=== PATIENT | female | born 1945 | race Caucasian/White ===

== ENCOUNTER → 2016-10-19 | Outpatient (CLI) | payer OTHER, MEDICARE ==
[~2016-10-19] MED LIST: ASCA500 PO; ASPI1CHW12 PO; CHOL1TAB46 PO; GLC500 PO; MULT-506 PO; OMEG10007 PO
[2016-10-19 12:07] LABS: BASO % 0.3 %; BASO ABS # 0.03 K/uL (0-0.2); COMPLETE YES; EOS % 1.4 %; HEMATOCRIT 42.2 % (37-47); IG% 0.3 %; LYMPH % 18.6 %; LYMPH ABS # 1.61 K/uL (1.2-3.4); MEAN CELL VOLUME 100.5 fL (80-100); MEAN CORPUSCULAR HEMOGLOBIN 32.4 pg (25-34); MEAN CORPUSCULAR HGB CONC 32.2 g/dl (32-36); MEAN PLATELET VOLUME 10.3 fL (7.4-10.4); MONO % 6.5 %; NEUT % 72.9 %; PLATELET COUNT 231 K/uL (130-400); WHITE BLOOD COUNT 8.64 K/uL (4.8-10.8)
[2016-10-19 12:36] LABS: ESTIMATED AVERAGE GLUCOSE 154 mg/dl; HA1C FLAG Normal (Normal)
== END | disposition home or self-care (01) ==
LOC: C.LABBFT 07:32
PROVIDERS: ATTEND Internal Medicine
DX: E11.9 Type 2 diabetes mellitus without complications (principal); E55.9 Vitamin D deficiency, unspecified; E78.00 Pure hypercholesterolemia, unspecified

== ENCOUNTER → 2016-10-26 | Outpatient (CLI) | payer OTHER, MEDICARE ==
--- NOTE | 2016-10-27 06:48 | SPLIT NIGHT TECHNICIAN REPORT ---
[facility] Split Night Polysomnogram - Cable Assembler And Swager Report Study date: 10/26/2016 Referring Physician: Gaudencio Mendez M.D. Name: IDANIA DUNCAN Cable Assembler And Swager: YUSEF Huitron. Date of : 1945 Height: 71 years, Height 5' 1" Sex: Female Weight: 248 lbs Age: 71 Neck Circum: 18 inches BMI: Medications: 46.85 Aspirin 81 mg, Azithromycin 250 mg, CoQ10, Fish Oil 1000 MG, Multi Vitamin, Patient History 71 yr. old female here for a modified split night sleep study if AHI is greater than 15 in room 6. Patient had a sleep study in 2008 and had mild ROLANDA. Patient snores and has EDS. Patients [place] sleepiness scale score is 11/24. Parameters Monitored NPSG: E1-M2, E2-M1, Fp1-M2, Fp2-M1, F3-M2, F4-M2, F4-M1, C3-M2, C4-M2, C4-M1, O1-M2, O2-M2, O2-M1, T3-M2, T4-M1, P3-M2, P4-M1, CHIN1, CHIN2, HR, EKG, Legs, PFLOW, SNOR, FLOW, CFLOW, Tidal Volume, THOR, ABDO, SpO2, PLTH, CPRESS, ETCO2 Wave, ETCO2, pH SLEEP SUMMARY DATA DIAGNOSTIC TREATMENT Lights Out: 9:28:59 PM 1:02:29 AM Lights On: 12:48:29 AM 6:04:59 AM Total Recording Time (TRT): 200.5 min. 302.5 min. Total Sleep Time (TST): 120.5 min. 234.5 min. NREM Time: 120.5 min. 147.0 min. REM Time: 0.0 min. 87.5 min. Sleep Period Time (SPT): 151.0 min. 260.0 min. Sleep Efficiency (SE): 60 % 78 % Sleep Latency: 48.5 min. 23.0 min. Arousal Index: 9.5 1.5 PAP Treatment Levels: 4, 6, 8, 9, 10, 11, 12, 13, 14 * Optimal Pressure(s) SLEEP STAGING DATA DIAGNOSTIC TREATMENT Duration (min) TST % Duration (min) TST % Stage Wake: 79.0 min. -- 68.0 min. -- WASO: 30.5 min. -- 25.5 min. -- NREM: 120.5 min. 100 % 147.0 min. 63 % Stage N1: 21.0 min. 17 % 8.0 min. 3 % Stage N2: 99.5 min. 83 % 44.5 min. 19 % Stage N3: 0.0 min. 0 % 94.5 min. 40 % REM: 0.0 min. 0 % 87.5 min. 37 % POSITIONAL DATA Event Count Index Event Count Index Supine: N/A N/A N/A N/A Supine NREM: N/A N/A N/A N/A Supine REM: N/A N/A N/A N/A Non-Supine: 138 68.7 74 18.9 Non-Supine NREM: 138 68.7 30 12.2 Non-Supine REM: N/A N/A 44 30.2 AROUSAL SUMMARY DATA: Event Count Index Event Count Index Apnea Arousals: 0 0.0 0 0.0 Hypopnea Arousals: 8 4.0 2 0.5 Snore Arousals: 8 4.0 1 0.3 PLM Arousals: 0 0.0 0 0.0 Non-Specific Arousals: 0 0.0 2 0.5 Total Arousals: 19 9.5 6 1.5 MYOCLONUS (PLM) Event Count Index Event Count Index PLM: 8 4.0 60 15.4 PLM AROUSAL: 0 0.0 0 0.0 PLM W/O AROUSAL 8 4.0 60 15.4 PLM W/RESP EVENT 1 0.0 2 0.0 MYOCLONUS (PLM) Event Count Index Event Count Index LM: 6 22.4 11 2.8 LM AROUSAL: 6 3.0 1 0.3 LM W/O AROUSAL LM W/RESP EVENT LM NON SPECIFIC 23 11.5 67 17.1 HEART RATE DATA DIAGNOSTIC TREATMENT Sleep (bpm): 95 93 REM (bpm): N/A 81 NREM (bpm): 88 89 Tachycardia Count: 0 0 Tachycardia Duration: 0.00 0 Bradycardia Count: 0 0 Bradycardia Duration: 0.00 0 DIAGNOSTIC PORTION TREATMENT PORTION RESPIRATORY DATA Event Count Index Event Count Index AHI: -- 68.7 -- 18.9 RDI: -- 68.7 -- 19 Obstructive Apnea: 0 0.0 0 0.0 Central Apnea: 0 0.0 0 0.0 Mixed Apnea: 0 0.0 0 0.0 Hypopnea: 138 68.7 74 18.9 RERA: 0 0.0 0 0.0 Total Apneas: 0 0.0 0 0.0 RESPIRATORY DATA REM NREM SLEEP REM NREM SLEEP Supine Position: Obstructive Apneas: N/A N/A N/A N/A N/A N/A Central Apneas: N/A N/A N/A N/A N/A N/A Mixed Apneas: N/A N/A N/A N/A N/A N/A Hypopneas: N/A N/A N/A N/A N/A N/A RERA N/A N/A N/A N/A N/A N/A Total Supine Events: N/A N/A N/A N/A N/A N/A Supine AHI: N/A N/A N/A N/A N/A N/A Supine RDI: N/A N/A N/A N/A N/A N/A REM NREM SLEEP REM NREM SLEEP Non-Supine Position: Obstructive Apneas: N/A 0 0 0 0 0 Central Apneas: N/A 0 0 0 0 0 Mixed Apneas: N/A 0 0 0 0 0 Hypopneas: N/A 138 138 44 30 74 RERA N/A 0 0 0 0 0 Total Supine Events: N/A 138 138 44 30 74 Supine AHI: N/A 68.7 68.7 30.2 12.2 18.9 Supine RDI: N/A 68.7 68.7 30.2 12.2 18.9 OXYGEN DESTAURATION DATA: Event Count Index Event Count Index REM Desaturations: N/A N/A 58 39.8 NREM Desaturations: 169 84.1 34 13.9 SNORE DATA DIAGNOSTIC TREATMENT Snore Time: 10.0 1:25:29 AM Snore TST%: 3 2 Snore Arousal Count: 8 1 Snore Arousal Index: 4.0 0.3 Desaturation Event Summary: Minimum %SpO2 Event Count Mean/Min/Max Duration(sec.) Desaturation Index % Time In Bed > 90 144 21.1 / 9.3 / 54.8 95.9 18.1 86 - 90 226 20.5 / 6.5 / 54.8 43.7 62.3 81 - 85 38 27.1 / 9.0 / 60.0 37.9 12.1 76 - 80 14 25.5 / 9.0 / 60.0 35.6 4.7 71 - 75 6 25.1 / 17.8 / 36.0 28.4 2.5 66 - 70 0 N/A 0.0 0.3 61 - 65 0 N/A 0.0 0.0 56 - 60 0 N/A 0.0 0.0 51 - 55 0 N/A 0.0 0.0 < 50 0 N/A 0.0 0.0 OXYGEN SATURATION DATA DIAGNOSTIC TREATMENT SpO2 Mean Sleep: 88 % 86 % SpO2 Mean REM: N/A % 81 % SpO2 Mean NREM: 88 % 89 % SpO2 Minimum Sleep: 83 % 69 % SpO2 Minimum REM: N/A % 69 % SpO2 Minimum NREM: 83 % 84 % Time Below 90% (TST): 93.5 176.0 Time Below 88% (TST): 59.3 95.5 Total REM NREM Awake <50% 0.0 min. 0.0 min. 0.0 min. 0.0 min. 51 - 60% 0.0 min. 0.0 min. 0.0 min. 0.0 min. 61 - 70% 1.5 min. 1.5 min. 0.0 min. 0.0 min. 71 - 80% 36.3 min. 36.3 min. 0.0 min. 0.0 min. 81 - 90% 370.4 min. 49.1 min. 234.1 min. 87.2 min. 91 - 100% 90.1 min. 0.4 min. 32.9 min. 56.7 min. Average 88 81 88 90 Minimum SpO2 69 69 83 82 Desaturation Event Index 36.0 39.8 45.5 16.7 # Desat. Events below 89% 280 58 200 22 Time(%) with Saturation below 89% 45.1 16.5 24.4 4.2 Time(min.) with Saturation below 89% 224.7 82.0 121.6 21.2 Recording Cable Assembler And Swager Comments: Mrs. Duncan slept in the right, left, and supine positions. Frequent cardiac arrhythmias and PLMs noted. No bruxism noted. Snoring was noted and scored as a 3 on a scale of 0 through 5. (0=no snoring, 5=snoring loud enough to be heard through a closed door or down the [place] way) At 1:00 am, Mrs. Duncan met specific Split-Night criteria during the diagnostic portion of this study. CPAP was initiated at +4 CMH2O room air and up-titrated to an optimal level of +14 CMH2O Cflex, which nearly eliminated all respiratory events and snoring. A small ResMed Quattro air, was used during titration. Mrs. Duncan awoke to use the restroom once during the night. Mrs. Duncan stated, "I was so uncomfortable". The final report will be interpreted and signed by a sleep physician. The completed physician report will then be placed in the patient medical record. Therapy Event: Therapy (cm H20) 0 4 6 8 9 10 11 12 13 14 Total Time at Pressure (min.) 199.5 33.4 9.7 10.2 67.2 43.0 13.3 39.3 62.8 23.5 TST at Pressure (min.) 120.5 10.4 9.7 10.2 49.2 42.0 13.3 32.8 62.8 4.0 # Periods 1 1 1 1 1 1 1 1 1 1 Sleep Onset (min.) 48.5 23.0 0.0 0.0 0.0 0.0 0.0 0.0 0.0 0.0 REM Onset (min.) N/A N/A 2.6 0.0 0.0 43.0 0.0 0.0 44.3 0.0 Sleep Efficiency % 60 31 100 100 73 97 100 83 100 17 Wakefulness (%) 39.6 68.9 0.0 0.0 26.8 2.3 0.0 16.5 0.0 82.9 Wakefulness (min.) 79.0 23.0 0.0 0.0 18.0 1.0 0.0 6.5 0.0 19.5 NREM 1 (%) 10.5 7.5 0.0 0.0 2.2 2.3 0.0 7.6 0.0 0.0 NREM 1 (min.) 21.0 2.5 0.0 0.0 1.5 1.0 0.0 3.0 0.0 0.0 NREM 2 (%) 49.9 23.6 27.0 0.0 29.0 10.5 0.0 1.7 14.9 0.0 NREM 2 (min.) 99.5 7.9 2.6 0.0 19.5 4.5 0.0 0.7 9.3 0.0 NREM 3 (%) 0.0 0.0 0.0 0.0 34.2 84.9 0.0 0.0 55.7 0.0 NREM 3 (min.) 0.0 0.0 0.0 0.0 23.0 36.5 0.0 0.0 35.0 0.0 REM (%) 0.0 0.0 73.0 100.0 7.8 0.0 100.0 74.1 29.4 17.1 REM (min.) 0.0 0.0 7.1 10.2 5.2 0.0 13.3 29.2 18.5 4.0 # Arousals 19 0 1 0 2 1 0 1 1 0 Arousal Index 9.5 0.0 6.2 0.0 2.4 1.4 0.0 1.8 1.0 0.0 # Snore 517 34 83 31 75 1 0 0 8 0 Snore Index 257.4 196.6 513.5 182.2 91.4 1.4 0.0 0.0 7.6 0.0 AHI 68.7 92.5 61.9 35.3 6.1 5.7 27.0 25.6 12.4 0.0 AHI Supine N/A N/A N/A N/A N/A N/A N/A N/A N/A N/A AHI Non-Supine 68.7 92.5 61.9 35.3 6.1 5.7 27.0 25.6 12.4 0.0 NREM AHI 68.7 92.5 68.7 N/A 4.1 5.7 N/A 0.0 5.4 N/A REM AHI N/A N/A 59.4 35.3 23.0 0.0 27.0 28.8 29.2 0.0 RDI 68.7 92.5 61.9 35.3 6.1 5.7 27.0 25.6 12.4 0.0 # Obstructive 0 0 0 0 0 0 0 0 0 0 # Central Ap 0 0 0 0 0 0 0 0 0 0 # Mixed 0 0 0 0 0 0 0 0 0 0 # Hypopneas 138 16 10 6 5 4 6 14 13 0 RERAS 0 0 0 0 0 0 0 0 0 0 Total Respiratory Events 138 16 10 6 5 4 6 14 13 0 Time Below SpO2 89.00% (min.) 77.1 4.8 9.0 10.2 25.7 14.5 13.2 29.3 15.8 4.0 Mean NREM SpO2 (%) 88 89 88 N/A 88 89 N/A 90 90 N/A Mean REM SpO2 (%) N/A N/A 77 75 78 86 78 83 84 82 Mean Sleep SpO2 (%) 88 89 80 75 87 89 78 84 88 82 Min NREM SpO2 (%) 83 85 84 N/A 85 85 N/A 88 86 N/A Min REM SpO2 (%) N/A N/A 69 69 73 86 72 77 76 80 Position Supine (min.) 0.0 0.0 0.0 0.0 0.0 0.0 0.0 0.0 0.0 0.0 Position Non-supine (min.) 120.5 10.4 9.7 10.2 49.2 42.0 13.3 32.8 62.8 4.0 LM Index Sleep 26.4 5.8 12.4 0.0 74.3 1.4 4.5 3.7 2.9 0.0 LM Index NREM 26.4 5.8 0.0 N/A 77.7 1.4 N/A 32.7 4.1 N/A LM Index REM N/A N/A 17.0 0.0 46.0 0.0 4.5 0.0 0.0 0.0 Mean Heart Rate (bpm) 95 96 98 99 97 90 92 91 91 92 Min Heart Rate (bpm) 51 91 82 87 49 66 59 47 50 87
--- NOTE | 2016-10-27 17:09 | POLYSOMNOGRAPH REPORT ---
CLINICAL DATA: A 71-year-old female with BMI of 46.85 referred by myself and Dr. Maddox with a previous history of mild sleep apnea in 2009. She has snoring and excessive daytime sleepiness. Her [place] Sleepiness Score was elevated at 11/24. SLEEP ARCHITECTURE: For the diagnostic portion of the study, total sleep period was 151 minutes. Total sleep time was 120.5 minutes, all non-REM sleep. Sleep latency was delayed at 48.5 minutes. Sleep efficiency was 60%. Arousal index was 9.5. Sleep consisted of stage N1 17% and N2 83%. For the treatment portion of the study, total sleep period was 260 minutes. Total sleep time was 234.5 minutes divided between 147 minutes of non-REM sleep and 87.5 minutes of REM sleep. Sleep latency was 23 minutes. Sleep efficiency was 78%. Arousal index was 12.5. Sleep consisted of stage N1 3%, N2 19% N3 40%, REM 37%. AROUSAL DATA: Prior to treatment, 19 arousals were recorded for an index of 9.5 per hour. During treatment, 6 arousals were recorded for an index of 1.5 per hour. PERIODIC LIMB MOVEMENTS DATA: Prior to treatment, 23 limb movements during sleep were noted for an index of 11.5 per hour. During treatment, 67 limb movements during sleep were noted for an index of 17.1 per hour. EKG: Heart rate ranged from 81 and 95 beats per minute. There were PVCs and aberrantly conducted PACs noted. RESPIRATORY DATA: Very severe sleep apnea was documented prior to treatment. The AHI was 68.7. There were 138 hypopneic episodes. The AHI during treatment was 18.9. There were 74 hypopneic episodes. OXIMETRY DATA: Nocturnal hypoxemia was seen prior to treatment. Oxygen bertin was 69% during REM. The mean saturation for the treatment was 86%. SCIENTIFIC SOFTWARE DEVELOPER'S COMMENTS AND TREATMENT SUMMARY: The patient slept in the right, left, and supine positions. Snoring was moderate, rated 3 on a scale of 1-5. At 1 a.m., she met split night criteria. She used a small ResMed Quattro facemask. She was started on CPAP and was titrated up to 14 cm of water pressure. At a final pressure setting, she slept for 4 minutes with an AHI of 0 with improvement in her nocturnal hypoxemia. IMPRESSION: Severe sleep apnea/hypopnea with an apnea-hypopnea index of 68.7 with nocturnal hypoxemia corrected with CPAP 14 cm of water pressure, small ResMed Quattro Air facemask. RECOMMENDATIONS: The patient should be started on the above noted treatment regimen and seen back in followup within 90 days to document efficacy and compliance. DONYAD
== END | disposition home or self-care (01) ==
LOC: C.NEUR 21:00
PROVIDERS: ATTEND Internal Medicine Pulmonary Disease
DX: G47.30 Sleep apnea, unspecified (principal)

== ENCOUNTER → 2016-11-04 | Outpatient (CLI) | payer OTHER, MEDICARE ==
[~2016-11-04] VITALS: Ht 152.4 cm; Wt 110.9 kg
[2016-11-04 15:17] VITALS: BP 133/68; PULSE 105; Ht 152.4 cm; Wt 110.9 kg
== END | disposition home or self-care (01) ==
LOC: C.NEUR 14:38
PROVIDERS: ATTEND Internal Medicine Pulmonary Disease
DX: G47.30 Sleep apnea, unspecified (principal); R53.83 Other fatigue

== ENCOUNTER → 2016-12-21 | Day surgery (SDC) | payer OTHER, MEDICARE ==
[2016-12-14 07:34] VITALS: Ht 154.9 cm; Wt 110.9 kg
[~2016-12-21] VITALS: Ht 154.9 cm; Wt 110.9 kg
[~2016-12-21] MED LIST changes: +LIDOCAINE HCL 2% 2 ML VIAL (20MG/ML) ONE; +PROPOFOL IV EMULSION 10 MG/ML 20 ML VIAL IV ONE; +SODIUM CHLORIDE 0.9% 500ML 500 ML IV ONE
--- NOTE | 2016-12-21 10:10 | Endo History and Physical ---
History & Physical Date of Service: Dec 21, 2016. Chief Complaint: Screening Referring Physician: Dr. Maddox History of Present Illness 71 yo CF who presents for screening colonoscopy. Past Surgical History Hx Cardiac Surgery: No Hx Internal Defibrillator: No Hx Pacemaker: No Hx Abdominal Surgery: Yes (LAP DARRION) Hx of Implantable Prosthesis: No Hx Post-Op Nausea and Vomiting: No Hx Cancer Surgery: Yes (MASTECTOMY AND RECONSTRUCTION SURGERY) Hx Thoracic Surgery: No Hx Orthopedic: No Hx Urinary Tract Surgery: No Family History None Social History Smoking Status: Never Smoker Hx Substance Use: No Hx Alcohol Use: No Allergies Coded Allergies: Statins (Verified Adverse Reaction, Mild, MUSCLE PAIN, 12/21/16) Current Medications Reported Home Medications Medications Dose Route/Sig Max Daily Dose Days Date Category Metformin HCl 500 Mg Tab 500 Mg PO BID 12/14/16 Reported Aspirin 81 Low Dose (Aspirin) 81 Mg Chw 1 Tab PO QAM 12/14/16 Reported Vitamin D3 (Cholecalciferol) 5,000 Unit Tab 2 Tab PO QAM 12/14/16 Reported Vitamin C (Ascorbic Acid) 500 Mg Tab 1,000 Mg PO QAM 12/14/16 Reported [place]-3 (Fish Oil) 1 Ea Cap 1 Cap PO QAM 12/14/16 Reported Multivitamin (Multivitamins) Tab 1 Tab PO QAM 04/04/11 Reported Vital Signs Weight (Kilograms): 110.91 Height (Feet): 5 Height (Inches): 1 Physical Exam General Appearance: WD/WN, no apparent distress Respiratory/Chest: Auscultation: breath sounds normal Cardiovascular: Heart Auscultation: RRR Abdomen: Bowel Sounds: normal Inspection & Palpation: soft, non-distended, no tenderness, guarding & rebound Assessment and Plan Assessment: 71 yo CF who presents for screening colonoscopy. Plan: Proceed with colonoscopy.
--- NOTE | 2016-12-21 11:08 | GI REPORT ---
Procedure Date: 12/21/2016 10:13 AM Procedure: Colonoscopy Indications: Screening for colorectal malignant neoplasm Medicines: Monitored Anesthesia Care Complications: No immediate complications. Estimated Blood Loss: Estimated blood loss: none. Procedure: Pre-Anesthesia Assessment: - Prior to the procedure, a History and Physical was performed, and patient medications and allergies were reviewed. The patient's tolerance of previous anesthesia was also reviewed. The risks and benefits of the procedure and the sedation options and risks were discussed with the patient. All questions were answered, and informed consent was obtained. Prior Anticoagulants: The patient has taken aspirin, last dose was 2 days prior to procedure. ASA Grade Assessment: III - A patient with severe systemic disease. After reviewing the risks and benefits, the patient was deemed in satisfactory condition to undergo the procedure. After I obtained informed consent, the scope was passed under direct vision. Throughout the procedure, the patient's blood pressure, pulse, and oxygen saturations were monitored continuously. The scope was introduced through the anus and advanced to the terminal ileum. The colonoscopy was performed without difficulty. The patient tolerated the procedure well. The quality of the bowel preparation was good. The terminal ileum, ileocecal valve, appendiceal orifice, and rectum were photographed. Findings: A 4 mm polyp was found in the ascending colon. The polyp was sessile. The polyp was removed with a cold snare. Resection was complete, and retrieval was complete. Multiple small-mouthed diverticula were found in the sigmoid colon. Non-bleeding internal hemorrhoids were found during retroflexion. The hemorrhoids were small. Impression: - One 4 mm polyp in the ascending colon, removed with a cold snare. Resected and retrieved. - Non-bleeding internal hemorrhoids. Recommendation: - Resume previous diet. - Continue present medications. - Repeat colonoscopy for surveillance based on pathology results. - Return to primary care physician as previously scheduled. Chau Causey DO 12/21/2016 11:08:33 AM This report has been signed electronically. Note Initiated On: 12/21/2016 10:13 AM I attest to the content of the Intraoperative Record and orders documented therein, exceptions below
--- NOTE | 2016-12-21 11:09 | Discharge Instructions ---
Endoscopy Patient Instructions Date / Procedure(s) Performed Dec 21, 2016. Colonoscopy Allergy Information Coded Allergies: Statins (Verified Adverse Reaction, Mild, MUSCLE PAIN, 12/21/16) Discharge Date / Findings Dec 21, 2016. Colon polyp Diverticulosis Internal hemorrhoids Medication Instructions Stopped Medication(s): 81mg Aspirin last taken 12/19/16 OK to resume all medications today as prescribed Reported Home Medications Medications Dose Route/Sig Max Daily Dose Days Date Category Metformin HCl 500 Mg Tab 500 Mg PO BID 12/14/16 Reported Aspirin 81 Low Dose (Aspirin) 81 Mg Chw 1 Tab PO QAM 12/14/16 Reported Vitamin D3 (Cholecalciferol) 5,000 Unit Tab 2 Tab PO QAM 12/14/16 Reported Vitamin C (Ascorbic Acid) 500 Mg Tab 1,000 Mg PO QAM 12/14/16 Reported [place]-3 (Fish Oil) 1 Ea Cap 1 Cap PO QAM 12/14/16 Reported Multivitamin (Multivitamins) Tab 1 Tab PO QAM 04/04/11 Reported Provider Instructions Activity Restrictions - No exercising or heavy lifting for 24 hours. - Do not drink alcohol the day of the procedure. - Do not drive a car or operate machinery until the day after the procedure. - Do not make any important decisions or sign important papers in 24 hours after the procedure. Following Day: - Return to full activity which may include returning to work/school. Diet Start your diet with liquids and light foods (jello, soup, juice, toast). Then eat your usual diet if not nauseated. Treatment For Common After Affects For mild abdominal pain, bloating, or excessive gas: - Rest - Eat lightly - Lie on right side Follow-Up Information Follow-up with Case as scheduled Anesthesia Information What You Should Know You have had a procedure that required some medicine to reduce anxiety and discomfort. This treatment is called moderate sedation. After receiving the treatment, you may be sleepy, but you will be able to breathe on your own. The effects of the treatment may last for several hours. Follow these instructions along with Activity/Diet recommendations noted above: * Do NOT do anything where dizziness or clumsiness would be dangerous. * Rest quietly at home today, then you can be up and about tomorrow. * Have a responsible person stay with you the rest of today. * You may have had an I.V. today. If so, you may take the dressing off later today. Recommendations Call your doctor if: * Trouble breathing * Continuous vomiting for more than 24 hours * Temperature above 101 degrees * Severe abdominal pain or bloating * Pain not relieved by pain medicine ordered * There is increased drainage or redness from any incision * A large amount of rectal bleeding greater than 2-3 tablespoons. (If you had a polyp/s removed or have hemorrhoids, a small amount of blood - from the rectum is to be expected.) * You have any unanswered questions or concerns. IN THE EVENT OF A SERIOUS EMERGENCY, GO TO THE NEAREST EMERGENCY ROOM Your discharge instructions were prepared by provider Chau Causey. Patient Instructions Signature Page Renee Duncan Patient (or Guardian) Signature/Date: I have read and understand the instructions given to me by my caregivers. Caregiver/RN/Doctor Signature/Date: The above-named patient and/or guardian has received patient instructions on this date. + Original Patient Signature Page (only) stays with chart. Please make copy for patient.
[2016-12-21 11:32] VITALS: BP 145/77; PULSE 91; O2SAT 96
--- NOTE | 2016-12-21 11:37 | Anesthesiology Progress Note ---
Anesthesia Post Op Note Date & Time Dec 21, 2016 at 11:37 Vital Signs Pain Intensity: 0 Vital Signs Past 12 Hours Date Time Temp Pulse Resp B/P (MAP) Pulse Ox O2 Delivery O2 Flow Rate FiO2 12/21/16 11:32 91 18 145/77 (99) 96 Room Air 12/21/16 11:17 96 18 142/82 (102) 98 Room Air 12/21/16 11:02 97 18 122/65 (84) 95 Room Air 12/21/16 10:11 37.2 91 18 144/74 (97) 94 Room Air Notes Mental Status: alert / awake / arousable, participated in evaluation Pt Amnestic to Procedure: Yes Nausea / Vomiting: adequately controlled Pain: adequately controlled Airway Patency, RR, SpO2: stable & adequate BP & HR: stable & adequate Hydration State: stable & adequate Anesthetic Complications: no major complications apparent
== END | disposition home or self-care (01) ==
LOC: C.GI 09:29
PROVIDERS: ATTEND Internal Medicine
DX: Z12.11 Encounter for screening for malignant neoplasm of colon (principal); D12.2 Benign neoplasm of ascending colon; K64.8 Other hemorrhoids; Z90.49 Acquired absence of other specified parts of digestive tract; G47.33 Obstructive sleep apnea (adult) (pediatric); E11.9 Type 2 diabetes mellitus without complications; Z85.3 Personal history of malignant neoplasm of breast

== ENCOUNTER → 2017-01-13 | Outpatient (CLI) | payer OTHER, MEDICARE ==
[~2017-01-13] VITALS: Ht 154.9 cm; Wt 110.7 kg
[~2017-01-13] MED LIST changes: -LIDOCAINE HCL 2% 2 ML VIAL (20MG/ML) ONE; -PROPOFOL IV EMULSION 10 MG/ML 20 ML VIAL IV ONE; -SODIUM CHLORIDE 0.9% 500ML 500 ML IV ONE
[2017-01-13 13:35] VITALS: BP 142/80; PULSE 90; Ht 154.9 cm; Wt 110.7 kg
== END | disposition home or self-care (01) ==
LOC: C.NEUR 13:07
PROVIDERS: ATTEND Physician Assistant
DX: G47.30 Sleep apnea, unspecified (principal)

== ENCOUNTER → 2017-02-23 | Outpatient (CLI) | payer OTHER, MEDICARE ==
[2017-02-23 12:33] LABS: URINE APPEARANCE CLOUDY (CLEAR); URINE BILIRUBIN NEG (NEG); URINE COLOR YELLOW; URINE EPITHELIAL CELL AUTO >30 /lpf (0-5); URINE NITRITE NEG (NEG); URINE PH 5.5 (4.5-7.5); URINE SPECIFIC GRAVITY 1.017 (1.000-1.030); UROBILINOGEN NEG (NEG); ZZUR CULT IF INDIC CLEAN CATCH YES
[2017-02-23 12:38] LABS: MANUAL MICROSCOPIC REQUIRED? NO; REVIEW REQ? NO
[2017-02-23 13:00] LABS: ESTIMATED AVERAGE GLUCOSE 143 mg/dl; HA1C FLAG Normal (Normal)
[2017-02-23 13:25] LABS: BLOOD UREA NITROGEN 10 mg/dl (7-18); BUN/CREATININE RATIO 16.4 (10-20); CALCIUM 9.3 mg/dl (8.5-10.1); CARBON DIOXIDE 28 mmol/L (21-32); CHLORIDE 106 mmol/L (98-107); CREATININE 0.59 mg/dl (0.60-1.20); GLUCOSE 118 mg/dl (70-99); POTASSIUM 4.2 mmol/L (3.5-5.1); SODIUM 140 mmol/L (136-145)
[2017-02-23 13:27] LABS: RATIO 23.2 mcg/mg (0-30.0)
== END | disposition home or self-care (01) ==
LOC: C.LABBFT 07:46
PROVIDERS: ATTEND Internal Medicine
DX: E11.9 Type 2 diabetes mellitus without complications (principal); E55.9 Vitamin D deficiency, unspecified

== ENCOUNTER → 2017-02-27 | Outpatient (CLI) | payer OTHER, MEDICARE | END | disposition home or self-care (01) | LOC: C.LABBFT 07:56 | PROVIDERS: ATTEND Internal Medicine | DX: E55.9 Vitamin D deficiency, unspecified (principal) ==

== ENCOUNTER → 2017-07-03 | Outpatient (CLI) | payer OTHER, MEDICARE ==
[2017-07-03 12:58] LABS: HEMOGLOBIN A1C 6.4 % (4.5-5.6)
== END | disposition home or self-care (01) ==
LOC: C.LABBFT 07:42
PROVIDERS: ATTEND Internal Medicine
DX: E11.9 Type 2 diabetes mellitus without complications (principal); E55.9 Vitamin D deficiency, unspecified

== ENCOUNTER → 2017-08-24 | Outpatient (CLI) | payer OTHER, MEDICARE | END | disposition home or self-care (01) | LOC: C.MAMM 13:18 | PROVIDERS: ATTEND Internal Medicine | DX: M81.0 Age-related osteoporosis without current pathological fracture (principal) ==

== ENCOUNTER 2023-05-10 20:41 | Inpatient (IN) ==
[2023-05-10] MEDS ORDERED: ALBUT/IPRATROP 3MG/0.5MG NEB 3 ML VIAL NEB STA ×3 (21:06→22:52)
[2023-05-10] MEDS ORDERED: methylPREDNISolone 125 MG/2 ML VIAL IV STA (21:06)
[2023-05-10] MEDS ORDERED: OPTIRAY 320 125ml IV ONE (21:35)
[2023-05-10 21:37] LABS: iSTAT Creatinine 0.3 mg/dl (0.6-1.3); iSTAT Hemoglobin 13.3 g/dl (12.0-16.0); iSTAT Ionized Calcium 1.08 mmol/l (1.12-1.32); iSTAT Potassium 3.9 mmol/L (3.3-5.0)
--- NOTE | 2023-05-10 21:59 | Emergency Department Note ---
History of Present Illness General Chief Complaint: Shortness of Breath/Dyspnea Time Seen by Provider: 05/10/23 20:57 History of Present Illness Provider Complaint: + cough Onset (ago): 3 day(s) Duration: + progressively worsening Context: + sick contacts () Associated symptoms: + chills, + myalgias and + shortness of breath; no chest pain, no abdominal pain, no nausea, no vomiting or no diarrhea Home Medications Medication Instructions Recorded Confirmed Type cholecalciferol (vitamin D3) 125 5,000 unit PO QAM 12/11/18 05/10/23 History mcg (5,000 unit) tablet (Vitamin D3) omega 3-uoi-uxc-fish oil 1,000 mg 1 cap PO QAM 12/11/18 05/10/23 History (120 mg-180 mg) capsule (Fish Oil) ascorbic acid (vitamin C) 1,000 mg 1 g PO QAM 03/22/19 05/10/23 History tablet (Vitamin C) multivitamin with minerals 1 cap PO QAM 05/31/21 05/10/23 History aspirin 81 mg capsule 81 mg PO QAM 04/24/22 05/10/23 History alendronate 70 mg tablet 70 mg PO .weekly #12 tabs 08/30/22 05/10/23 Rx cholestyramine-aspartame 4 gram 4 g PO QPM #60 ea 01/11/23 05/10/23 Rx oral powder for susp in a packet (Cholestyramine Light) ezetimibe 10 mg tablet (Zetia) 10 mg PO DAILY #90 tabs 01/11/23 05/10/23 Rx glucosamine-chondroitin 250 mg-200 2 tab PO DAILY 01/11/23 05/10/23 History mg tablet (Osteo Bi-Flex) metformin 500 mg tablet,extended 1,000 mg (2 x 500 mg) PO QAM #270 03/13/23 05/10/23 Rx release 24 hr tabs Allergies Allergy/AdvReac Type Severity Reaction Status Date / Time Iyzehus-BMH-VdK Reductase AdvReac Unknown MUSCLE PAIN Verified 05/10/23 22:01 Inhibitor [Qlnruzf-Dhg-Arr Reductase Inhibitor] Past Med/Surg History Medical History Sciatic leg pain Statin myopathy Carotid artery plaque History of breast cancer Sudden idiopathic hearing loss, left ear Myofascial pain Chronic low back pain Lumbar spondylosis Degenerative arthritis of knee, bilateral Osteoporosis Breast cancer Diverticulosis Generalized osteoarthritis Hearing loss Internal hemorrhoids Sebaceous cyst Vertigo Vitamin D deficiency SOB (shortness of breath) on exertion PRESENT FOR YRS - REPORTS RESOLVES WITH REST Surgical History History of reconstruction of both breasts (~2011) S/P breast implant, silicone (~2011) S/P cataract surgery R EYE 12/26/18 - TOOK 3.5 WEEKS TO START FEELING BETTER - HAD MULTIPLE FOLLOWS WITH EYE SURGEON - DENIES ANESTHESIA PROBLEM WITH History of bilateral mastectomy History of colonoscopy (~2016) History of cholecystectomy History of section x2 Family History Father Myocardial infarction Coronary heart disease Heart disease Mother Breast cancer Osteoarthritis Lymphoma Sister Cerebral aneurysm Grandmother (Maternal) Diabetes Grandfather (Paternal) Heart disease Other Family history of diabetes mellitus in grandmother Family history of diabetes mellitus in mother Family history of lymphoma No family history of adverse response to anesthesia No family history of bleeding disorder Denies family history of Rheumatoid arthritis Sudden SIDS (sudden syndrome) Ovarian cancer Prostate cancer Deep vein thrombosis Osteoporosis Clotting disorder Crohn's disease Dementia Depression Kidney disease Schizophrenia Congenital kidney disease Gestational diabetes Lung cancer COPD (chronic obstructive pulmonary disease) Colorectal cancer Pulmonary embolism Lung disease Hypertension Ulcerative colitis Colonic polyp Stroke Cystic kidney disease Social History Smoking Status: Heavy tobacco smoker Tobacco Type: Cigarettes Age Started Using Tobacco: 12; Age Quit Using Tobacco: 43; packs per day: 1; Second Hand Exposure: No; Do You Dip or Chew Tobacco: No; Hx Alcohol Use: Yes Alcohol type: wine Alcohol Intake Frequency: Monthly or Less Hx Substance Use: No Preferred Language: Mexican Communication Ability: Effective Visual Impairment: No Limitations Hearing Ability: Normal Locomotive Firer Required: No Beliefs That Will Affect Care: None marital status: Current Living Situation: Spouse current occupational status: retired Feels Safe at Home: Yes Childhood Exposure to Second-Hand Smoke: Yes Diet: regular caffeine: Yes during the past year weight has: remained stable Dental Care, Regularly: No Physical Activity Frequency: 3-4 Times per Week Seatbelt Use: always Sunscreen Use: Yes Assistive Devices: CPAP, Denture - Upper, Denture - Lower and Glasses Physical Exam 2 Vital Signs: Vital Signs - 24 hr 05/10/23 20:50 05/10/23 20:56 05/10/23 21:00 Pulse Rate 112 H 114 H Pulse Rate [Finger ] 115 H Pulse Rate from Sp O2 Sensor 113 H Respiratory Rate 24 23 Respiratory Effort / Characteristics Respiratory Depth Blood Pressure 157/103 H Blood Pressure [Ri ght Arm] 148/92 H Blood Pressure Comfort n 121 Blood Pressure Comfort n [Right Arm] 110 Pulse Oximetry 99 97 Oxygen Delivery Me thod Nasal Cannula Nasal Cannula Oxygen Flow Rate 4 2 Sepsis Recent Feve r Within 48 Hours Sepsis New/Unexpla ined Change in Men sonido Status Sepsis Action Take n by Nursing 05/10/23 21:29 05/10/23 21:29 05/10/23 22:37 Pulse Rate 123 H Pulse Rate [Finger ] Pulse Rate from Sp O2 Sensor 122 H Respiratory Rate 26 H Respiratory Effort / Characteristics Short of Breath Respiratory Depth Shallow Blood Pressure 145/107 H Blood Pressure [Ri ght Arm] Blood Pressure Comfort n 119 Blood Pressure Comfort n [Right Arm] Pulse Oximetry 92 Oxygen Delivery Me thod Nasal Cannula Nasal Cannula Oxygen Flow Rate 4 4 Sepsis Recent Feve r Within 48 Hours Yes Sepsis New/Unexpla ined Change in Men sonido Status N/A Sepsis Action Take n by Nursing No Action Required 05/10/23 22:46 05/10/23 22:51 Pulse Rate 121 H Pulse Rate [Finger ] Pulse Rate from Sp O2 Sensor Respiratory Rate Respiratory Effort / Characteristics Respiratory Depth Blood Pressure Blood Pressure [Ri ght Arm] Blood Pressure Comfort n Blood Pressure Comfort n [Right Arm] Pulse Oximetry 96 92 Oxygen Delivery Me thod Nasal Cannula Nasal Cannula Oxygen Flow Rate 2 4 Sepsis Recent Feve r Within 48 Hours Sepsis New/Unexpla ined Change in Men sonido Status Sepsis Action Take n by Nursing Physical Exam: Physical Exam GENERAL: oriented to person, place, and time. appears well-developed and well- nourished. HENT: Exam performed. - Head: Normocephalic and atraumatic. EYES: Conjunctivae and EOM are normal. Right eye exhibits no discharge. Left eye exhibits no discharge. No scleral icterus. NECK: Normal range of motion. Neck supple. No JVD present. CV: Tachycardic rate, regular rhythm, normal heart sounds and intact distal pulses. There is no peripheral edema. Palpable radial pulses bue. PULM/CHEST: Rhonchi bilaterally and scant expiratory wheezes bilaterally. ABD: The abdomen is soft. There is no tenderness. NEURO: Motor and sensation grossly intact. SKIN: Skin is warm and dry. He is not diaphoretic. PSYCH: normal mood and affect. Behavior is normal. Judgment and thought content normal. Course Course 2056: The patient was evaluated in room C5. A complete history and physical exam was performed Cardiac monitoring: An order was placed for continuous cardiac monitoring. The monitor shows a rate of 110 with sinus tachycardia rhythm interpreted by me Patient was found to be having an oxygen saturation 74% on room air. Supplemental oxygen was applied which improved the patient's oxygen saturation. 2300: Patient's oxygen saturations are stable on supplemental oxygen via nasal cannula. On reevaluation the patient is still having wheezing. Repeat DuoNebs ordered for the patient. Labs show white blood cell count of 8.32 hemoglobin 12.6 platelet count 179. D-dimer elevated at 1390. CTA of the chest negative for PE. Possible aspiration pneumonia. Venous pH 7.9 venous pCO2 75 venous bicarb 35. High-sensitivity troponin 55.2. Procalcitonin negative. Patient is RSV positive. [facility] team will be notified. Administered Medications Discontinued Medications Albuterol (Albut/Ipratrop 3mg/0.5mg Neb 3 Ml Vial) 3 ml NEB NOW STA; Protocol Stop: 05/10/23 21:07 Last Admin: 05/10/23 22:28 Dose: 3 ml Documented By: CRUZ Ioversol (Optiray 320 125ml) 119 ml IV ONCE ONE Stop: 05/10/23 21:36 Last Admin: 05/10/23 21:36 Dose: 119 ml Documented By: DUANE Methylprednisolone (Methylprednisolone 125 Mg/2 Ml Vial) 125 mg IV NOW STA Stop: 05/10/23 21:07 Last Admin: 05/10/23 22:27 Dose: 125 mg Documented By: CRUZ Medical Decision Making Laboratory Data Attestation: I reviewed the patient's lab results. 05/10/23 20:55 05/10/23 20:55 Lab Results 05/10/23 05/10/23 05/10/23 Range/Units 20:50 20:55 21:15 WBC 8.32 (4.8-10.8) K/ul RBC 3.82 L (4.20-5.40) M/uL Hgb 12.6 (12.0-16.0) g/dl POC Hgb 13.3 (12.0-16.0) g/dl Hct 38.4 (37.0-47.0) % POC Hct 39 (37-47) % MCV 100.5 H (80.0-100.0) fL MCH 33.0 (25.0-34.0) pg MCHC 32.8 (32.0-36.0) g/dL RDW Std Deviation 50.9 H (36.4-46.3) fL RDW Coeff of Dianelys 13.9 (11.5-14.5) % Plt Count 179 (130-400) K/uL MPV 9.9 (9.4-12.4) fL Immature Gran % (Auto) 0.4 % Neut % (Auto) 87.7 % Lymph % (Auto) 7.3 % Lanier % (Auto) 4.1 % Eos % (Auto) 0.0 % Baso % (Auto) 0.5 % Neut # (Auto) 7.30 H (1.40-6.50) K/uL Lymph # (Auto) 0.61 L (1.20-3.40) K/uL Lanier # (Auto) 0.34 (0.11-0.59) K/uL Eos # (Auto) 0.00 (0.00-0.50) K/uL Baso # (Auto) 0.04 (0.00-0.20) K/uL Immature Gran # (Auto) 0.03 (0.01-0.20) K/uL PT 10.7 (9.0-12.0) Seconds INR 1.0 (0.9-1.1) APTT 24.3 (21.0-31.0) Seconds PTT Ratio 0.9 D-Dimer 1390 H* (0-500) ug/L FEU VBG pH (7.36-7.41) VBG pCO2 (38-50) mmHg VBG pO2 mmHg VBG HCO3 mmol/L VBG O2 Saturation % VBG Base Excess mEq/L POC Sodium 140 (135-144) mmol/L Sodium 139 (136-145) mmol/L POC Potassium 3.9 (3.3-5.0) mmol/L Potassium 3.9 (3.5-5.1) mmol/L POC Chloride 102 (101-112) mmol/L Chloride 103 (98-107) mmol/L Carbon Dioxide 28 (21-32) mmol/L POC Total CO2 28 (24-31) mmol/L Anion Gap 8 (3-11) POC Anion Gap 15.0 L (16-25) mmol/L POC BUN 9 (7-18) mg/dl BUN 10 (6-23) mg/dl Creatinine 0.44 L (0.6-1.2) mg/dl POC Creatinine 0.3 L (0.6-1.3) mg/dl Est Cr Clr Drug Dosing Not Reportable Est GFR ( Amer) 114.4 ml/min Est GFR (Non-Af Amer) 98.7 ml/min BUN/Creatinine Ratio 22.7 H (10-20) Glucose 192 H (70-99(Fasting)) mg/dl POC Glucose (other) 189 H (70-99) mg/dl Lactate (0.4-2.0) mmol/L Calcium 8.8 (8.6-10.3) mg/dl POC Ioniz Calcium Deon 1.08 L (1.12-1.32) mmol/l Magnesium 1.7 (1.7-2.4) mg/dl Total Bilirubin 0.9 (0.2-1.0) mg/dl Direct Bilirubin 0.1 (0-0.2) mg/dl AST 21 (13-39) U/L ALT 17 (7-52) U/L Alkaline Phosphatase 87 (34-104) U/L Troponin I High Sens 55.2 H* (0-14) pg/ml Total Protein 6.8 (6.0-8.3) gm/dl Albumin 4.1 (3.4-5.0) gm/dl Procalcitonin < 0.05 (0-0.5) ng/ml SARS-CoV-2 (PCR) NEGATIVE (Negative) Influenza Type A (PCR) Negative (Neg) Influenza Type B (PCR) Negative (Neg) RSV (RT-PCR) Positive A* (Neg) 05/10/23 Range/Units 22:35 WBC (4.8-10.8) K/ul RBC (4.20-5.40) M/uL Hgb (12.0-16.0) g/dl POC Hgb (12.0-16.0) g/dl Hct (37.0-47.0) % POC Hct (37-47) % MCV (80.0-100.0) fL MCH (25.0-34.0) pg MCHC (32.0-36.0) g/dL RDW Std Deviation (36.4-46.3) fL RDW Coeff of Dianelys (11.5-14.5) % Plt Count (130-400) K/uL MPV (9.4-12.4) fL Immature Gran % (Auto) % Neut % (Auto) % Lymph % (Auto) % Lanier % (Auto) % Eos % (Auto) % Baso % (Auto) % Neut # (Auto) (1.40-6.50) K/uL Lymph # (Auto) (1.20-3.40) K/uL Lanier # (Auto) (0.11-0.59) K/uL Eos # (Auto) (0.00-0.50) K/uL Baso # (Auto) (0.00-0.20) K/uL Immature Gran # (Auto) (0.01-0.20) K/uL PT (9.0-12.0) Seconds INR (0.9-1.1) APTT (21.0-31.0) Seconds PTT Ratio D-Dimer (0-500) ug/L FEU VBG pH 7.28 L (7.36-7.41) VBG pCO2 75 H (38-50) mmHg VBG pO2 45 mmHg VBG HCO3 35 mmol/L VBG O2 Saturation 72.0 % VBG Base Excess 5.8 mEq/L POC Sodium (135-144) mmol/L Sodium (136-145) mmol/L POC Potassium (3.3-5.0) mmol/L Potassium (3.5-5.1) mmol/L POC Chloride (101-112) mmol/L Chloride (98-107) mmol/L Carbon Dioxide (21-32) mmol/L POC Total CO2 (24-31) mmol/L Anion Gap (3-11) POC Anion Gap (16-25) mmol/L POC BUN (7-18) mg/dl BUN (6-23) mg/dl Creatinine (0.6-1.2) mg/dl POC Creatinine (0.6-1.3) mg/dl Est Cr Clr Drug Dosing Est GFR ( Amer) ml/min Est GFR (Non-Af Amer) ml/min BUN/Creatinine Ratio (10-20) Glucose (70-99(Fasting)) mg/dl POC Glucose (other) (70-99) mg/dl Lactate 1.5 (0.4-2.0) mmol/L Calcium (8.6-10.3) mg/dl POC Ioniz Calcium Deon (1.12-1.32) mmol/l Magnesium (1.7-2.4) mg/dl Total Bilirubin (0.2-1.0) mg/dl Direct Bilirubin (0-0.2) mg/dl AST (13-39) U/L ALT (7-52) U/L Alkaline Phosphatase (34-104) U/L Troponin I High Sens (0-14) pg/ml Total Protein (6.0-8.3) gm/dl Albumin (3.4-5.0) gm/dl Procalcitonin (0-0.5) ng/ml SARS-CoV-2 (PCR) (Negative) Influenza Type A (PCR) (Neg) Influenza Type B (PCR) (Neg) RSV (RT-PCR) (Neg) Imaging Data Radiologist's Impression: Chest CTA 05/10/23 21:06 Exam(s): CTA CHEST IV Amt: 119 ml optiray 320 EXAM: CT Angiography Chest With Intravenous Contrast CLINICAL HISTORY: Reason for exam: ro PE. TECHNIQUE: Axial computed tomographic angiography images of the chest with intravenous contrast. Automated exposure control was utilized for the study. A dose lowering technique was utilized adhering to the principles of ALARA. MIP reconstructed images were created and reviewed. COMPARISON: No relevant prior studies available. FINDINGS: Pulmonary arteries: Unremarkable. No acute pulmonary embolism. Aorta: Atherosclerotic changes of the aorta. No thoracic aortic aneurysm. Lungs: See below. Pleural space: Small LEFT pleural effusion. Mild subjacent consolidation, likely atelectasis. Consolidation in the posterior aspect of the RIGHT middle lobe, correlate for mild aspiration pneumonia. Heart: Cardiomegaly. No significant pericardial effusion. No evidence of RV dysfunction. Bones/joints: Degenerative changes of the spine. No acute fracture. No dislocation. Soft tissues: Bilateral breast implants. Lymph nodes: Unremarkable. No enlarged lymph nodes. IMPRESSION: 1. No acute pulmonary embolism. 2. Small LEFT pleural effusion. Mild subjacent consolidation, likely atelectasis. Consolidation in the posterior aspect of the RIGHT middle lobe, correlate for mild aspiration pneumonia. Electronically signed by: Westley Gonzalez MD 05/10/23 22:00 PM ECG Data Attestation: I personally reviewed and interpreted this ECG as follows: Rate (beats per minute): 114 Rhythm: sinus tachycardia Findings: no ST depression, no ST elevation or no prolonged QT MDM Narrative 2056: The patient was evaluated in room C5. A complete history and physical exam was performed Cardiac monitoring: An order was placed for continuous cardiac monitoring. The monitor shows a rate of 110 with sinus tachycardia rhythm interpreted by me Patient was found to be having an oxygen saturation 74% on room air. Supplemental oxygen was applied which improved the patient's oxygen saturation. 0: Patient's oxygen saturations are stable on supplemental oxygen via nasal cannula. On reevaluation the patient is still having wheezing. Repeat DuoNebs ordered for the patient. Labs show white blood cell count of 8.32 hemoglobin 12.6 platelet count 179. D-dimer elevated at 1390. CTA of the chest negative for PE. Possible aspiration pneumonia. Venous pH 7.9 venous pCO2 75 venous bicarb 35. High-sensitivity troponin 55.2. Procalcitonin negative. Patient is RSV positive. [facility] team will be notified. Impression & Plan Hypoxia, Respiratory syncytial virus (RSV), COPD exacerbation Critical Care Time Critical Care Time: Yes Total Critical Care Time: 57 I have personally spent greater than 57 minutes of critical care time in the direct management of this patient. This includes bedside care, interpretation of diagnostic studies, and testing, discussion with consultants, patient, and family members, and other required patient management activities. This 57 minutes is in excess of all separately billable procedures. Discharge Plan Visit Data Chief Complaint: Shortness of Breath/Dyspnea ED Provider: Sage Peralta Discharge Problem: Hypoxia, Respiratory syncytial virus (RSV), COPD exacerbation Patient Disposition: Admitted As Inpatient Forms Stand Alone Forms: My [facility] Prescriptions Prescriptions: No Action alendronate 70 mg tablet 70 mg PO .weekly Qty: 12 3RF metformin 500 mg tablet extended release 24 hr 1,000 mg PO QAM Qty: 270 1RF glucosamine-chondroitin [Osteo Bi-Flex] 250-200 mg tablet 2 tab PO DAILY Rx Instructions: give after food/meal Cholestyramine Light 4 gram powder in packet 4 g PO QPM Qty: 60 11RF ezetimibe [Zetia] 10 mg tablet 10 mg PO DAILY Qty: 90 3RF multivitamin with minerals Capsule 1 cap PO QAM cholecalciferol (vitamin D3) [Vitamin D3] 5,000 unit Tablet 5,000 unit PO QAM omega 4-idv-kkm-fish oil [Fish Oil] 1,000 mg (120 mg-180 mg) Capsule 1 cap PO QAM ascorbic acid (vitamin C) [Vitamin C] 1,000 mg tablet 1 g PO QAM aspirin 81 mg Capsule 81 mg PO QAM Referrals Referrals: Tomas Maddox MD [Primary Care Provider] -
[2023-05-10 22:14] LABS: Alanine Aminotransferase 17 U/L (7-52); Albumin Level 4.1 gm/dl (3.4-5.0); Alkaline Phosphatase 87 U/L (34-104); Anion Gap 8 (3-11); Aspartate Aminotransferase 21 U/L (13-39); BUN Creatinine Ratio 22.7 (10-20); Bilirubin Direct 0.1 mg/dl (0-0.2); Bilirubin,Total 0.9 mg/dl (0.2-1.0); Blood Urea Nitrogen 10 mg/dl (6-23); Calcium 8.8 mg/dl (8.6-10.3); Carbon Dioxide 28 mmol/L (21-32); Chloride 103 mmol/L (98-107); Est GFR (African American) 114.4 ml/min; Est GFR (Non-African American) 98.7 ml/min; Glucose 192 mg/dl (70-99(Fasting)); Magnesium 1.7 mg/dl (1.7-2.4); Potassium 3.9 mmol/L (3.5-5.1); Sodium 139 mmol/L (136-145); Total Protein 6.8 gm/dl (6.0-8.3)
[2023-05-10 22:29] LABS: Partial Thromboplastin Ratio 0.9; Partial Thromboplastin Time 24.3 Seconds (21.0-31.0); Prothrombin Time 10.7 Seconds (9.0-12.0)
[2023-05-10 22:36] LABS: Basophils # (auto) 0.04 K/uL (0.00-0.20); Basophils % (auto) 0.5 %; Hematocrit (blood only) 38.4 % (37.0-47.0); Hemoglobin 12.6 g/dl (12.0-16.0); Immature Granulocytes # (auto) 0.03 K/uL (0.01-0.20); Immature Granulocytes % (auto) 0.4 %; Lymphocytes # (auto) 0.61 K/uL (1.20-3.40); Lymphocytes % (auto) 7.3 %; Mean Corpuscular Hgb Conc 32.8 g/dL (32.0-36.0); Mean Corpuscular Volume 100.5 fL (80.0-100.0); Mean Platelet Volume 9.9 fL (9.4-12.4); Monocytes # (auto) 0.34 K/uL (0.11-0.59); Monocytes % (auto) 4.1 %; Neutrophils % (auto) 87.7 %; Platelet Count 179 K/uL (130-400); RDW Coefficient of Variation 13.9 % (11.5-14.5); RDW Standard Deviation 50.9 fL (36.4-46.3); Red Blood Count 3.82 M/uL (4.20-5.40); White Blood Count 8.32 K/ul (4.8-10.8)
[2023-05-10 22:37] LABS: D Dimer 1390 ug/L FEU (0-500)
[2023-05-10 22:40] LABS: Influenza A virus by PCR Negative (Neg); Influenza B virus by PCR Negative (Neg); SARS CoV2 RNA(COVID-19) Ceph NEGATIVE (Negative)
[2023-05-10 22:48] LABS: RSV by PCR Positive (Neg)
[2023-05-10 22:48] LABS: Base Excess VBG 5.8 mEq/L; HCO3 VBG 35 mmol/L; PCO2 VBG 75 mmHg (38-50); PO2 VBG 45 mmHg; pH VBG 7.28 (7.36-7.41)
[2023-05-10 22:49] LABS: Troponin I High Sensitivity 55.2 pg/ml (0-14)
[2023-05-10] MEDS ORDERED: AZITHROMYCIN 250 MG TAB PO ONE (22:53)
[2023-05-10 23:28] LABS: Appearance Urine Turbid (Clear); Bacteria Urine Automated Negative (Negative); Bilirubin Urine Negative (Negative); Blood Urine Negative (Negative); Color Urine Yellow; Epithelial Cell Urine Auto 20-30 /lpf (0-5); Glucose Urine UA Trace (Negative); Ketones Urine 1+ (Negative); Leukocyte Esterase Urine Negative (Negative); Nitrite Urine Negative (Negative); Protein Urine 2+ (Negative); RBC Urine Automated 0-4 /hpf (0-4); Specific Gravity Urine > 1.045 (1.000-1.030); Urobilinogen Urine Negative (Negative)
[2023-05-10 23:45] LABS: Troponin I High Sensitivity 86.9 pg/ml (0-14)
--- NOTE | 2023-05-11 00:03 | History & Physical Report ---
Date of Service May 11, 2023 Assessment & Plan (1) Respiratory syncytial virus (RSV): Plan: 77yo female presenting with acute hypoxic respiratory failure likely secondary to RSV infection, possible undiagnosed COPD given remote history of tobacco use. Patient presently breathing comfortably on supplemental O2 - 4L/min. VBG shows mild acute respiratory acidosis with pH of 7.28 and pCO2 of 75 CTA as above with small left pleural effusion, mild consolidation possibly atelectasis. Mention of possible aspiration PNA - no leukocytosis or procalcitonin elevation -Admit to PCU -Maintain isolation precautions -Will try on BiPAP given mild respiratory acidosis -Repeat VBG in AM -Continue DuoNeb q 4 hours scheduled -Albuterol q 2 hours PRN -Pulmicort inhaled daily -Solumedrol 40mg IV TID -Azithromycin 250mg IV daily Repeat VBG, Troponin and labs in AM History of Present Illness Chief Complaint: shortness Primary Care Provider: Tomas Maddox MD 77yo female presenting with shortness of breath. She reports 3 days of symptoms including dry cough, dyspnea at rest and with exertion as well as feeling of chest "fullness". Her had a cold last week and has since recovered. Patient with no known lung disease, however, she did smoke 1ppd for many years. She quit tobacco 20 years ago. She denies fever, chills, palpitations, abdominal pain, nausea, vomiting or diarrhea. No nasal congestion, sore throat or other URI symptoms. No additional complaints at this time. She was hypoxic prior to arrival at 74% on room air. she is currently on NC and saturating well ER Course: Solumedrol 125mg IV ALbuterol 3mL Azithromycin 5oo mg PO Allergies Allergy/AdvReac Type Severity Reaction Status Date / Time [id number] Reductase AdvReac Unknown MUSCLE PAIN Verified 05/10/23 22:01 Inhibitor [Glgtxyv-Ocr-Uwc Reductase Inhibitor] Home Medications Medication Instructions Recorded Confirmed Type cholecalciferol (vitamin D3) 125 5,000 unit PO QAM 12/11/18 05/10/23 History mcg (5,000 unit) tablet (Vitamin D3) omega 1-wkn-nbe-fish oil 1,000 mg 1 cap PO QAM 12/11/18 05/10/23 History (120 mg-180 mg) capsule (Fish Oil) ascorbic acid (vitamin C) 1,000 mg 1 g PO QAM 03/22/19 05/10/23 History tablet (Vitamin C) multivitamin with minerals 1 cap PO QAM 05/31/21 05/10/23 History aspirin 81 mg capsule 81 mg PO QAM 04/24/22 05/10/23 History alendronate 70 mg tablet 70 mg PO .weekly #12 tabs 08/30/22 05/10/23 Rx cholestyramine-aspartame 4 gram 4 g PO QPM #60 ea 01/11/23 05/10/23 Rx oral powder for susp in a packet (Cholestyramine Light) ezetimibe 10 mg tablet (Zetia) 10 mg PO DAILY #90 tabs 01/11/23 05/10/23 Rx glucosamine-chondroitin 250 mg-200 2 tab PO DAILY 01/11/23 05/10/23 History mg tablet (Osteo Bi-Flex) metformin 500 mg tablet,extended 1,000 mg (2 x 500 mg) PO QAM #270 03/13/23 05/10/23 Rx release 24 hr tabs Past Med/Surg History Medical History Sciatic leg pain Statin myopathy Carotid artery plaque History of breast cancer Sudden idiopathic hearing loss, left ear Myofascial pain Chronic low back pain Lumbar spondylosis Degenerative arthritis of knee, bilateral Osteoporosis Breast cancer Diverticulosis Generalized osteoarthritis Hearing loss Internal hemorrhoids Sebaceous cyst Vertigo Vitamin D deficiency SOB (shortness of breath) on exertion PRESENT FOR YRS - REPORTS RESOLVES WITH REST Surgical History History of reconstruction of both breasts (~2011) S/P breast implant, silicone (~2011) S/P cataract surgery R EYE 12/26/18 - TOOK 3.5 WEEKS TO START FEELING BETTER - HAD MULTIPLE FOLLOWS WITH EYE SURGEON - DENIES ANESTHESIA PROBLEM WITH History of bilateral mastectomy History of colonoscopy (~2016) History of cholecystectomy History of section x2 Family History Father Myocardial infarction Coronary heart disease Heart disease Mother Breast cancer Osteoarthritis Lymphoma Sister Cerebral aneurysm Grandmother (Maternal) Diabetes Grandfather (Paternal) Heart disease Other Family history of diabetes mellitus in grandmother Family history of diabetes mellitus in mother Family history of lymphoma No family history of adverse response to anesthesia No family history of bleeding disorder Denies family history of Rheumatoid arthritis Sudden SIDS (sudden syndrome) Ovarian cancer Prostate cancer Deep vein thrombosis Osteoporosis Clotting disorder Crohn's disease Dementia Depression Kidney disease Schizophrenia Congenital kidney disease Gestational diabetes Lung cancer COPD (chronic obstructive pulmonary disease) Colorectal cancer Pulmonary embolism Lung disease Hypertension Ulcerative colitis Colonic polyp Stroke Cystic kidney disease Social History Smoking Status: Heavy tobacco smoker Tobacco Type: Cigarettes Age Started Using Tobacco: 12; Age Quit Using Tobacco: 43; packs per day: 1; Second Hand Exposure: No; Do You Dip or Chew Tobacco: No; Hx Alcohol Use: Yes Alcohol type: wine Alcohol Intake Frequency: Monthly or Less Hx Substance Use: No Preferred Language: Georgian Communication Ability: Effective Visual Impairment: No Limitations Hearing Ability: Normal Registered Nurse Practitioner Required: No Beliefs That Will Affect Care: None marital status: Current Living Situation: Spouse current occupational status: retired Feels Safe at Home: Yes Childhood Exposure to Second-Hand Smoke: Yes Diet: regular caffeine: Yes during the past year weight has: remained stable Dental Care, Regularly: No Physical Activity Frequency: 3-4 Times per Week Seatbelt Use: always Sunscreen Use: Yes Assistive Devices: CPAP, Denture - Upper, Denture - Lower and Glasses Review of Systems Review of Systems: All systems reviewed & are unremarkable except as noted in HPI & below Physical Exam Physical Exam: General: patient resting comfortably, NAD, non-toxic in appearance, AA&O x 4 Skin: warm, dry, intact, no rashes or lesions HEENT: NC/AT, PERRL, EOMI, anicteric sclera, conjunctiva without injection, external ear normal to inspection and nontender, nares patent, moist mucus membranes, dentition intact, no oropharyngeal lesions, neck supple, trachea midline, no LAD, no thyromegaly, no JVD Heart: +S1/S2, regular, no m/r/g Lungs: equal air entry bilaterally, no rales/rhonchi, diffuse end-expiratory wheezing throughout Abd: +BS, soft, NT/ND, no masses/organomegaly/ascites Ext: warm, 2+ pulses in UE/LE bilaterally, no clubbing/cyanosis or edema Neuro: nonfocal, patient AA&O x 4, speech intact, no facial droop, moving all extremities on command with equal strength 5/5 Results & Data Results & Data Vital Signs (Past 12 Hours) Vital Signs Pulse Pulse Resp BP BP Pulse Ox O2 Del Method 05/10/23 22:51 121 H 92 Nasal Cannula 05/10/23 22:46 96 Nasal Cannula 05/10/23 22:37 123 H 26 H 145/107 H 92 Nasal Cannula 05/10/23 21:29 Nasal Cannula 05/10/23 21:00 114 H 23 157/103 H 97 Nasal Cannula 05/10/23 20:56 112 H 05/10/23 20:50 115 H 24 148/92 H 99 Nasal Cannula O2 Flow Rate 05/10/23 22:51 4 05/10/23 22:46 2 05/10/23 22:37 4 05/10/23 21:29 4 05/10/23 21:00 2 05/10/23 20:56 05/10/23 20:50 4 Laboratory Results Laboratory Results WBC 8.32 K/ul (4.8-10.8) 05/10/23 20:55 RBC 3.82 M/uL (4.20-5.40) L 05/10/23 20:55 Hgb 12.6 g/dl (12.0-16.0) 05/10/23 20:55 POC Hgb 13.3 g/dl (12.0-16.0) 05/10/23 21:15 Hct 38.4 % (37.0-47.0) 05/10/23 20:55 POC Hct 39 % (37-47) 05/10/23 21:15 MCV 100.5 fL (80.0-100.0) H 05/10/23 20:55 MCH 33.0 pg (25.0-34.0) 05/10/23 20:55 MCHC 32.8 g/dL (32.0-36.0) 05/10/23 20:55 RDW Std Deviation 50.9 fL (36.4-46.3) H 05/10/23 20:55 RDW Coeff of Dianelys 13.9 % (11.5-14.5) 05/10/23 20:55 Plt Count 179 K/uL (130-400) 05/10/23 20:55 MPV 9.9 fL (9.4-12.4) 05/10/23 20:55 Immature Gran % (Auto) 0.4 % 05/10/23 20:55 Neut % (Auto) 87.7 % 05/10/23 20:55 Lymph % (Auto) 7.3 % 05/10/23 20:55 [place] % (Auto) 4.1 % 05/10/23 20:55 Eos % (Auto) 0.0 % 05/10/23 20:55 Baso % (Auto) 0.5 % 05/10/23 20:55 Neut # (Auto) 7.30 K/uL (1.40-6.50) H 05/10/23 20:55 Lymph # (Auto) 0.61 K/uL (1.20-3.40) L 05/10/23 20:55 [place] # (Auto) 0.34 K/uL (0.11-0.59) 05/10/23 20:55 Eos # (Auto) 0.00 K/uL (0.00-0.50) 05/10/23 20:55 Baso # (Auto) 0.04 K/uL (0.00-0.20) 05/10/23 20:55 Immature Gran # (Auto) 0.03 K/uL (0.01-0.20) 05/10/23 20:55 PT 10.7 Seconds (9.0-12.0) 05/10/23 20:55 INR 1.0 (0.9-1.1) 05/10/23 20:55 APTT 24.3 Seconds (21.0-31.0) 05/10/23 20:55 PTT Ratio 0.9 05/10/23 20:55 D-Dimer 1390 ug/L FEU (0-500) H* 05/10/23 20:55 VBG pH 7.28 (7.36-7.41) L 05/10/23 22:35 VBG pCO2 75 mmHg (38-50) H 05/10/23 22:35 VBG pO2 45 mmHg 05/10/23 22:35 VBG HCO3 35 mmol/L 05/10/23 22:35 VBG O2 Saturation 72.0 % 05/10/23 22:35 VBG Base Excess 5.8 mEq/L 05/10/23 22:35 POC Sodium 140 mmol/L (135-144) 05/10/23 21:15 Sodium 139 mmol/L (136-145) 05/10/23 20:55 POC Potassium 3.9 mmol/L (3.3-5.0) 05/10/23 21:15 Potassium 3.9 mmol/L (3.5-5.1) 05/10/23 20:55 POC Chloride 102 mmol/L (101-112) 05/10/23 21:15 Chloride 103 mmol/L (98-107) 05/10/23 20:55 Carbon Dioxide 28 mmol/L (21-32) 05/10/23 20:55 POC Total CO2 28 mmol/L (24-31) 05/10/23 21:15 Anion Gap 8 (3-11) 05/10/23 20:55 POC Anion Gap 15.0 mmol/L (16-25) L 05/10/23 21:15 POC BUN 9 mg/dl (7-18) 05/10/23 21:15 BUN 10 mg/dl (6-23) 05/10/23 20:55 Creatinine 0.44 mg/dl (0.6-1.2) L 05/10/23 20:55 POC Creatinine 0.3 mg/dl (0.6-1.3) L 05/10/23 21:15 Est Cr Clr Drug Dosing Not Reportable 05/10/23 20:55 Est GFR ( Amer) 114.4 ml/min 05/10/23 20:55 Est GFR (Non-Af Amer) 98.7 ml/min 05/10/23 20:55 BUN/Creatinine Ratio 22.7 (10-20) H 05/10/23 20:55 Glucose 192 mg/dl (70-99(Fasting)) H 05/10/23 20:55 POC Glucose (other) 189 mg/dl (70-99) H 05/10/23 21:15 Lactate 1.5 mmol/L (0.4-2.0) 05/10/23 22:35 Calcium 8.8 mg/dl (8.6-10.3) 05/10/23 20:55 POC Ioniz Calcium Deon 1.08 mmol/l (1.12-1.32) L 05/10/23 21:15 Magnesium 1.7 mg/dl (1.7-2.4) 05/10/23 20:55 Total Bilirubin 0.9 mg/dl (0.2-1.0) 05/10/23 20:55 Direct Bilirubin 0.1 mg/dl (0-0.2) 05/10/23 20:55 AST 21 U/L (13-39) 05/10/23 20:55 ALT 17 U/L (7-52) 05/10/23 20:55 Alkaline Phosphatase 87 U/L (34-104) 05/10/23 20:55 Troponin I High Sens 86.9 pg/ml (0-14) H* D 05/10/23 22:37 Total Protein 6.8 gm/dl (6.0-8.3) 05/10/23 20:55 Albumin 4.1 gm/dl (3.4-5.0) 05/10/23 20:55 Procalcitonin < 0.05 ng/ml (0-0.5) 05/10/23 20:55 Urine Color Yellow 05/10/23 23:05 Urine Appearance Turbid (Clear) A 05/10/23 23:05 Urine pH 5.0 (4.5-7.5) 05/10/23 23:05 Ur Specific [place] > 1.045 (1.000-1.030) H 05/10/23 23:05 Urine Protein 2+ (Negative) H 05/10/23 23:05 Urine Glucose (UA) Trace (Negative) H 05/10/23 23:05 Urine Ketones 1+ (Negative) H 05/10/23 23:05 Urine Blood Negative (Negative) 05/10/23 23:05 Urine Nitrite Negative (Negative) 05/10/23 23:05 Urine Bilirubin Negative (Negative) 05/10/23 23:05 Urine Urobilinogen Negative (Negative) 05/10/23 23:05 Ur Leukocyte Esterase Negative (Negative) 05/10/23 23:05 Urine WBC (Auto) 1-5 /hpf (0-5) 05/10/23 23:05 Urine RBC (Auto) 0-4 /hpf (0-4) 05/10/23 23:05 U Hyaline Cast (Auto) 5-10 /lpf (0-5) H 05/10/23 23:05 U Epithel Cells (Auto) 20-30 /lpf (0-5) H 05/10/23 23:05 Urine Bacteria (Auto) Negative (Negative) 05/10/23 23:05 SARS-CoV-2 (PCR) NEGATIVE (Negative) 05/10/23 20:50 Influenza Type A (PCR) Negative (Neg) 05/10/23 20:50 Influenza Type B (PCR) Negative (Neg) 05/10/23 20:50 RSV (RT-PCR) Positive (Neg) A* 05/10/23 20:50 Blood Type O Positive 05/10/23 22:35 Antibody Screen NEGATIVE 05/10/23 22:35 Impressions Chest CTA 05/10/23 21:06 Exam(s): CTA CHEST IV Amt: 119 ml optiray 320 EXAM: CT Angiography Chest With Intravenous Contrast CLINICAL HISTORY: Reason for exam: ro PE. TECHNIQUE: Axial computed tomographic angiography images of the chest with intravenous contrast. Automated exposure control was utilized for the study. A dose lowering technique was utilized adhering to the principles of ALARA. MIP reconstructed images were created and reviewed. COMPARISON: No relevant prior studies available. FINDINGS: Pulmonary arteries: Unremarkable. No acute pulmonary embolism. Aorta: Atherosclerotic changes of the aorta. No thoracic aortic aneurysm. Lungs: See below. Pleural space: Small LEFT pleural effusion. Mild subjacent consolidation, likely atelectasis. Consolidation in the posterior aspect of the RIGHT middle lobe, correlate for mild aspiration pneumonia. Heart: Cardiomegaly. No significant pericardial effusion. No evidence of RV dysfunction. Bones/joints: Degenerative changes of the spine. No acute fracture. No dislocation. Soft tissues: Bilateral breast implants. Lymph nodes: Unremarkable. No enlarged lymph nodes. IMPRESSION: 1. No acute pulmonary embolism. 2. Small LEFT pleural effusion. Mild subjacent consolidation, likely atelectasis. Consolidation in the posterior aspect of the RIGHT middle lobe, correlate for mild aspiration pneumonia. Electronically signed by: Westley Gonzalez MD 05/10/23 22:00 PM Code Status & VTE Plan VTE Prophylaxis Plan VTE Prophylaxis will be ordered: Yes PG Care Time/CCT Total # of Minutes Spent Total Time Spent with Patient: Total time spent is greater than 50% in coordination of care (as documented) at patient's floor/unit and/or counseling patient: Coding Level of Care Code 09600 INT INP/OBS CARE 2/55MIN Diagnoses Respiratory syncytial virus (RSV) B33.8
[2023-05-11] MEDS ORDERED: ONDANSETRON INJ 2 MG/ML 2 ML VIAL IV PRN (00:53)
[2023-05-11] MEDS ORDERED: ALBUTEROL 0.083% NEBU SOLN 3 ML VIAL NEB PRN (00:53)
[2023-05-11 01:17] LABS: Phosphorus 3.5 mg/dl (2.5-4.9)
[2023-05-11] MEDS: ALBUT/IPRATROP 3MG/0.5MG NEB 3 ML VIAL NEB SCH ×6 (03:31→23:00)
[2023-05-11] MEDS: ENOXAPARIN INJ 40 MG/0.4 ML SYR SQ SCH (05:33)
[2023-05-11 05:51] LABS: Base Excess VBG 7.3 mEq/L; HCO3 VBG 34 mmol/L; Oxygen Saturation VBG 91.6 %; PCO2 VBG 58 mmHg (38-50); PO2 VBG 62 mmHg; pH VBG 7.38 (7.36-7.41)
[2023-05-11 05:58] LABS: Hematocrit (blood only) 39.6 % (37.0-47.0); Hemoglobin 12.6 g/dl (12.0-16.0); Mean Corpuscular Hemoglobin 32.5 pg (25.0-34.0); Mean Corpuscular Hgb Conc 31.8 g/dL (32.0-36.0); Mean Corpuscular Volume 102.1 fL (80.0-100.0); Mean Platelet Volume 9.5 fL (9.4-12.4); Platelet Count 179 K/uL (130-400); RDW Coefficient of Variation 13.8 % (11.5-14.5); RDW Standard Deviation 52.1 fL (36.4-46.3); Red Blood Count 3.88 M/uL (4.20-5.40); White Blood Count 5.75 K/ul (4.8-10.8)
[2023-05-11 06:14] LABS: BUN Creatinine Ratio 20.9 (10-20); Calcium 8.7 mg/dl (8.6-10.3); Creatinine Clr Calc Pharmacy 128.8 ml/min; Est GFR (African American) 115.3 ml/min; Est GFR (Non-African American) 99.5 ml/min; Potassium 4.5 mmol/L (3.5-5.1)
[2023-05-11 06:27] LABS: Troponin I High Sensitivity 129.8 pg/ml (0-14)
[2023-05-11] MEDS: BUDESONIDE 0.25 MG/2 ML VIAL (PULMICORT) NEB SCH ×2 (07:25→19:36)
--- NOTE | 2023-05-11 07:36 | XRay Report ---
SINGLE VIEW CHEST CLINICAL HISTORY: Sepsis. FINDINGS: An AP, portable, upright chest radiograph is compared to study dated 07/31/2007 and correlat ed with chest CT performed the same day 05/10/2023. The heart is enlarged noting atherosclerotic calc ification of the thoracic aorta. There is pulmonary vascular congestion. Bilateral airspace opacities likely represent pulmonary edema. There are small pleural effusions with dependent consolidation. No pneumothorax is seen. The skeletal structures are osteopenic. The bony thorax is grossly intact. IMPRESSION: 1. Cardiomegaly with evidence of congestive failure. 2. Bilateral airspace opacities likely represent pulmonary edema. Correlate clinically for evidence o f a superimposed infectious/inflammatory pneumonitis. Radiographic follow-up to resolution is recomme nded. 3. Small pleural effusions with dependent consolidation. ACT 112: Negative or not required by law. Electronically signed by: Shalom Ruby M.D. 05/11/2023 7:34 AM
[2023-05-11] MEDS ORDERED: PNEUMOCOCCAL VACCINE (PCV20) 20-VAL CONJ-DIP CRM/PF 0.5 ML SYR IM ONE (09:00)
[2023-05-11] MEDS: methylPREDNISolone 40 MG in SYRINGE 0 ML IV SCH ×2 (09:02→13:45)
[2023-05-11] MEDS: EZETIMIBE 10 MG TAB PO SCH (09:03)
[2023-05-11] MEDS: ASPIRIN 81 MG ECTAB PO SCH (09:03)
[2023-05-11] MEDS: FUROSEMIDE 40 MG/4 ML VIAL IV SCH ×2 (09:05→17:26)
--- NOTE | 2023-05-11 13:30 | XCELERA ---
[id number]
--- NOTE | 2023-05-11 14:07 | Electrocardiogram Report ---
Test Reason : Blood Pressure : / mmHG Vent. Rate : 114 BPM Atrial Rate : 114 BPM P-R Int : 136 ms QRS Dur : 088 ms QT Int : 338 ms P-R-T Axes : 066 020 086 degrees QTc Int : 465 ms Sinus tachycardia with occasional Premature ventricular complexes Nonspecific ST and T wave abnormality Abnormal ECG When compared with ECG of 27-SEP-2011 10:38, Premature ventricular complexes are now Present T wave inversion now evident in Lateral leads Confirmed by Tomas Malcolm [id number] on 05/11/2023 2:06:50 PM Referred By: REFERRED SELF Confirmed By:Andrew Malcolm
[2023-05-11] MEDS: lisinopril 10 MG TAB PO SCH (14:37)
--- NOTE | 2023-05-11 17:12 | Hospitalist Progress Note ---
Date of Service May 11, 2023 Assessment & Plan (1) Respiratory syncytial virus (RSV): Plan: Serology testing positive on admission. However, I believe CHF is causing the majority of her symptoms. Nevertheless she is being treated for what sounds like acute bronchitis in association with acute congestive heart failure. Supportive care. Chest CTA negative for PE (2) Acute respiratory failure with hypoxia and hypercarbia: Plan: Supplemental oxygen to maintain saturations in the 90 to 92% range. Avoid high oxygen saturations to prevent further CO2 retention (3) Morbid obesity: Plan: BMI greater than 40. Suggest aggressive weight loss (4) Combined systolic and diastolic congestive heart failure: Plan: Continue parenteral Lasix diuresis. Monitor intake and output. Serial chest x- rays. Lisinopril and metoprolol have been added. Cardiac echo reveals ejection fraction of 35% with regional wall motion abnormalities. She will need ischemic cardiac workup at a later date. (5) Type 2 diabetes mellitus: Plan: ADA diet. Sliding scale coverage as needed. Metformin is on hold Plan Anticipate eventual discharge to home within the next 48 to 72 hours Admission and Anticipated Discharge Date Admission Date: May 11, 2023 Subjective Alert and oriented. No distress. Chest x-ray was reviewed and the patient was examined. She appears to have congestive heart failure, combined systolic and diastolic. Cardiac echo reveals ejection fraction of 35% with regional wall motion abnormalities and moderate MR. She is now on lisinopril and metoprolol. Parenteral diuresis with Lasix 40 mg twice daily has been ordered. Will repeat chest x-ray again tomorrow. BNP is elevated as expected to 548. Solu-Medrol has been discontinued. CO2 is elevated which is probably chronic but to a lesser degree. She is requiring 5 L of oxygen currently. Chest CTA negative for PE. Review of Systems 2 Review of Systems: Constitutional-no fever or chills ENT-no blurred vision, no double vision, no epistaxis, no sore throat Respiratory-occasional nonproductive cough. Dyspnea on exertion Cardiac-no palpitations, no chest pain, no syncope GI-no nausea, vomiting, diarrhea, melena, hematochezia -no urinary retention, no urinary incontinence, no dysuria, no hematuria Musculoskeletal-no joint pain, no muscle tenderness Skin-no bruising, no rashes, no pruritus Neuro-no isolated weakness, no paresthesia, no weakness Psych-no depression, no anxiety Physical Exam 2 Physical Exam: General-alert and oriented x3, no fevers, no chills. Morbidly obese HEENT-head atraumatic and normocephalic, pupils equal and reactive to light, extraocular muscles intact Neck-no lymphadenopathy or thyromegaly, trachea midline Chest-diminished breath sounds bilaterally. Bilateral inspiratory rales. No wheezing. Midline rhonchi with forced cough. Cardiac-regular rate and rhythm, normal S1 and S2 Abdomen-normal bowel sounds, nontender, no hepatosplenomegaly Extremities-no cyanosis, clubbing, or edema Neuro-cranial nerves II through XII intact, motor and sensory function within normal limits, strength symmetrical , no focal deficits Psych-normal affect, normal mood Results & Data Results & Data Vital Signs (Past 12 Hours) Vital Signs Temp Pulse Pulse Resp BP Pulse Ox O2 Del Method 05/11/23 16:00 111 H 05/11/23 15:30 110 H 18 98 Nasal Cannula 05/11/23 15:08 36.6 C 110 H 20 111/74 96 Nasal Cannula 05/11/23 11:33 36.4 C L 103 H 20 168/80 H 98 Nasal Cannula 05/11/23 11:24 100 H 18 96 Nasal Cannula 05/11/23 09:00 111 H 05/11/23 09:00 Nasal Cannula 05/11/23 07:48 36.6 C 108 H 22 128/74 95 Nasal Cannula O2 Flow Rate 05/11/23 16:00 05/11/23 15:30 4 05/11/23 15:08 5 05/11/23 11:33 5 05/11/23 11:24 4.5 05/11/23 09:00 05/11/23 09:00 05/11/23 07:48 5 Laboratory Results 05/11/23 05:39 05/11/23 05:39 PG Care Time/CCT Total # of Minutes Spent Total Time Spent with Patient: Total time spent is greater than 50% in coordination of care (as documented) at patient's floor/unit and/or counseling patient: Coding Level of Care Code 48411 SUB INP/OBS CARE 3/50MIN Diagnoses Respiratory syncytial virus (RSV) B33.8 Acute respiratory failure with hypoxia and hypercarbia J96.01; J96.02 Morbid obesity E66.01 Combined systolic and diastolic congestive heart failure I50.40 Type 2 diabetes mellitus E11.9
[2023-05-11] MEDS ORDERED: AZITHROMYCIN 250 MG in DEXTROSE 5% 250 ML IV SCH (21:00)
[2023-05-11] MEDS: CHOLESTYRAMINE LIGHT 4 GM PKT PO SCH (22:07)
[2023-05-11] MEDS: METOPROLOL TARTRATE 25 MG TAB PO SCH (22:11)
[2023-05-12] MEDS: ACETAMINOPHEN 325 MG TAB PO PRN ×2 (04:01→17:12)
[2023-05-12] MEDS: ALBUT/IPRATROP 3MG/0.5MG NEB 3 ML VIAL NEB SCH ×6 (04:10→23:18)
[2023-05-12] MEDS: ENOXAPARIN INJ 40 MG/0.4 ML SYR SQ SCH (05:52)
[2023-05-12 06:18] LABS: Basophils # (auto) 0.02 K/uL (0.00-0.20); Basophils % (auto) 0.2 %; Eosinophils # (auto) 0.01 K/uL (0.00-0.50); Eosinophils % (auto) 0.1 %; Hematocrit (blood only) 37.6 % (37.0-47.0); Hemoglobin 12.3 g/dl (12.0-16.0); Immature Granulocytes # (auto) 0.05 K/uL (0.01-0.20); Immature Granulocytes % (auto) 0.5 %; Lymphocytes # (auto) 1.48 K/uL (1.20-3.40); Mean Corpuscular Hemoglobin 33.4 pg (25.0-34.0); Mean Corpuscular Hgb Conc 32.7 g/dL (32.0-36.0); Mean Corpuscular Volume 102.2 fL (80.0-100.0); Mean Platelet Volume 9.8 fL (9.4-12.4); Monocytes # (auto) 0.83 K/uL (0.11-0.59); Monocytes % (auto) 7.9 %; Neutrophils # (auto) 8.17 K/uL (1.40-6.50); Neutrophils % (auto) 77.3 %; Platelet Count 206 K/uL (130-400); RDW Coefficient of Variation 13.7 % (11.5-14.5); RDW Standard Deviation 51.9 fL (36.4-46.3); Red Blood Count 3.68 M/uL (4.20-5.40); White Blood Count 10.56 K/ul (4.8-10.8)
[2023-05-12 06:40] LABS: BUN Creatinine Ratio 36.2 (10-20); Calcium 8.8 mg/dl (8.6-10.3); Creatinine Clr Calc Pharmacy 94.2 ml/min; Est GFR (African American) 104.5 ml/min; Est GFR (Non-African American) 90.2 ml/min; Potassium 3.9 mmol/L (3.5-5.1)
[2023-05-12] MEDS: BUDESONIDE 0.25 MG/2 ML VIAL (PULMICORT) NEB SCH (07:17)
--- NOTE | 2023-05-12 07:30 | XRay Report ---
SINGLE VIEW CHEST CLINICAL HISTORY: Congestive heart failure. FINDINGS: An AP, portable, upright chest radiograph is compared to chest x-ray and chest CT dated . The heart is enlarged noting atherosclerotic calcification of the thoracic aorta. Pulmonary vascular congestion has improved. There are left larger than right pleural effusions with left basila r consolidation. No pneumothorax is seen. The skeletal structures are osteopenic. The bony thorax is grossly intact. IMPRESSION: 1. Cardiomegaly. Pulmonary vascular congestion has improved from previous. 2. Left larger than right pleural effusions with left basilar consolidation. ACT 112: Negative or not required by law. Electronically signed by: Shalom Ruby M.D. 05/12/2023 7:28 AM
[2023-05-12] MEDS: lisinopril 10 MG TAB PO SCH (08:57)
[2023-05-12] MEDS: FUROSEMIDE 40 MG/4 ML VIAL IV SCH ×2 (08:58→17:02)
[2023-05-12] MEDS: EZETIMIBE 10 MG TAB PO SCH (08:58)
[2023-05-12] MEDS: ASPIRIN 81 MG ECTAB PO SCH (08:58)
[2023-05-12] MEDS: METOPROLOL TARTRATE 25 MG TAB PO SCH ×2 (08:58→21:19)
--- NOTE | 2023-05-12 16:06 | Hospitalist Progress Note ---
Date of Service May 12, 2023 Assessment & Plan (1) Respiratory syncytial virus (RSV): Plan: Serology testing positive on admission. However, I believe CHF is causing the majority of her symptoms. Nevertheless she is being treated for what sounds like acute bronchitis in association with acute congestive heart failure. Supportive care. Chest CTA negative for PE (2) Acute respiratory failure with hypoxia and hypercarbia: Plan: Supplemental oxygen has been weaned off. She is now on room air (3) Morbid obesity: Plan: BMI greater than 40. Suggest aggressive weight loss (4) Combined systolic and diastolic congestive heart failure: Plan: Continue parenteral Lasix diuresis. Improved. Oxygen has been weaned off. Monitor intake and output. Serial chest x-rays. Lisinopril and metoprolol have been added and are well-tolerated so far. Cardiac echo reveals ejection fraction of 35% with regional wall motion abnormalities. She will need ischemic cardiac workup at a later date. (5) Type 2 diabetes mellitus: Plan: ADA diet. Sliding scale coverage as needed. Metformin is on hold and will be restarted at discharge Plan Hopeful discharge to home tomorrow, May 13 Admission and Anticipated Discharge Date Admission Date: May 11, 2023 Subjective Alert and oriented. No distress. She is feeling better. Daughter is at the bedside. Azithromycin has been discontinued. Oxygen has been weaned off. She probably will go home tomorrow, May 13. She will need outpatient stress testing and outpatient follow-up with cardiology. She has tolerated the addition of lisinopril and metoprolol quite well. Chest x-ray done today, May 12, looks better Review of Systems 2 Review of Systems: Constitutional-no fever or chills ENT-no blurred vision, no double vision, no epistaxis, no sore throat Respiratory-occasional nonproductive cough. Dyspnea on exertion Cardiac-no palpitations, no chest pain, no syncope GI-no nausea, vomiting, diarrhea, melena, hematochezia -no urinary retention, no urinary incontinence, no dysuria, no hematuria Musculoskeletal-no joint pain, no muscle tenderness Skin-no bruising, no rashes, no pruritus Neuro-no isolated weakness, no paresthesia, no weakness Psych-no depression, no anxiety Physical Exam 2 Physical Exam: General-alert and oriented x3, no fevers, no chills. Morbidly obese HEENT-head atraumatic and normocephalic, pupils equal and reactive to light, extraocular muscles intact Neck-no lymphadenopathy or thyromegaly, trachea midline Chest-diminished breath sounds bilaterally. Bilateral inspiratory rales. No wheezing. Midline rhonchi with forced cough. Cardiac-regular rate and rhythm, normal S1 and S2 Abdomen-normal bowel sounds, nontender, no hepatosplenomegaly Extremities-no cyanosis, clubbing, or edema Neuro-cranial nerves II through XII intact, motor and sensory function within normal limits, strength symmetrical , no focal deficits Psych-normal affect, normal mood Results & Data Results & Data Vital Signs (Past 12 Hours) Vital Signs Temp Pulse Pulse Resp BP Pulse Ox O2 Del Method 05/12/23 15:13 36.8 C 100 H 18 121/79 91 Room Air 05/12/23 14:56 86 18 91 Room Air 05/12/23 10:52 36.5 C 100 H 18 119/60 90 Room Air 05/12/23 10:14 83 16 92 Room Air 05/12/23 09:00 97 H 05/12/23 09:00 Room Air 05/12/23 07:17 97 H 16 93 Nasal Cannula 05/12/23 07:09 36.3 C L 98 H 17 100/54 L 92 Nasal Cannula O2 Flow Rate 05/12/23 15:13 05/12/23 14:56 05/12/23 10:52 05/12/23 10:14 05/12/23 09:00 05/12/23 09:00 05/12/23 07:17 2 05/12/23 07:09 2 Laboratory Results 05/12/23 05:33 05/12/23 05:33 PG Care Time/CCT Total # of Minutes Spent Total Time Spent with Patient: Total time spent is greater than 50% in coordination of care (as documented) at patient's floor/unit and/or counseling patient: Coding Level of Care Code 74238 SUB INP/OBS CARE 3/50MIN Diagnoses Respiratory syncytial virus (RSV) B33.8 Acute respiratory failure with hypoxia and hypercarbia J96.01; J96.02 Morbid obesity E66.01 Combined systolic and diastolic congestive heart failure I50.40 Type 2 diabetes mellitus E11.9
[2023-05-12] MEDS: CHOLESTYRAMINE LIGHT 4 GM PKT PO SCH (22:17)
[2023-05-13] MEDS: ALBUT/IPRATROP 3MG/0.5MG NEB 3 ML VIAL NEB SCH ×5 (04:10→19:29)
[2023-05-13] MEDS: ENOXAPARIN INJ 40 MG/0.4 ML SYR SQ SCH (06:15)
[2023-05-13 06:24] LABS: BUN Creatinine Ratio 40.8 (10-20); Calcium 8.7 mg/dl (8.6-10.3); Creatinine Clr Calc Pharmacy 110.8 ml/min; Est GFR (African American) 110.5 ml/min; Est GFR (Non-African American) 95.3 ml/min; Potassium 3.7 mmol/L (3.5-5.1)
[2023-05-13 06:28] LABS: Hematocrit (blood only) 37.4 % (37.0-47.0); Hemoglobin 12.1 g/dl (12.0-16.0); Mean Corpuscular Hemoglobin 32.7 pg (25.0-34.0); Mean Corpuscular Hgb Conc 32.4 g/dL (32.0-36.0); Mean Corpuscular Volume 101.1 fL (80.0-100.0); Mean Platelet Volume 9.7 fL (9.4-12.4); Platelet Count 224 K/uL (130-400); RDW Coefficient of Variation 13.8 % (11.5-14.5); RDW Standard Deviation 51.6 fL (36.4-46.3); White Blood Count 6.88 K/ul (4.8-10.8)
[2023-05-13 06:54] LABS: Basophils # (auto) 0.03 K/uL (0.00-0.20); Basophils % (auto) 0.4 %; Eosinophils # (auto) 0.07 K/uL (0.00-0.50); Immature Granulocytes # (auto) 0.02 K/uL (0.01-0.20); Immature Granulocytes % (auto) 0.3 %; Lymphocytes # (auto) 1.81 K/uL (1.20-3.40); Lymphocytes % (auto) 26.3 %; Monocytes # (auto) 0.69 K/uL (0.11-0.59); Neutrophils # (auto) 4.26 K/uL (1.40-6.50)
[2023-05-13] MEDS: BUDESONIDE 0.25 MG/2 ML VIAL (PULMICORT) NEB SCH (07:30)
--- NOTE | 2023-05-13 07:50 | XRay Report ---
XR chest 1V portable CLINICAL HISTORY: Congestive heart failure. COMPARISON STUDY: Chest radiograph May 10, 2023. Chest CT May 12, 2023. FINDINGS: There is no pneumothorax. Cardiomegaly is again noted. Pulmonary congestion is similar to p rior exam. There is a small left pleural effusion with hazy left basilar opacity. IMPRESSION: 1. Cardiomegaly. Pulmonary vascular congestion, similar to prior exam. 2. No significant change in a small left pleural effusion with associated left basilar opacity. ACT 112: Negative or not required by law. Electronically signed by: Martín Cantu M.D. 05/13/2023 7:48 AM
[2023-05-13] MEDS: FUROSEMIDE 40 MG/4 ML VIAL IV SCH ×2 (08:34→17:35)
[2023-05-13] MEDS: lisinopril 10 MG TAB PO SCH (08:35)
[2023-05-13] MEDS: EZETIMIBE 10 MG TAB PO SCH (08:35)
[2023-05-13] MEDS: ASPIRIN 81 MG ECTAB PO SCH (08:36)
[2023-05-13] MEDS: METOPROLOL TARTRATE 50 MG TAB PO SCH ×2 (09:20→20:01)
--- NOTE | 2023-05-13 13:51 | Hospitalist Progress Note ---
Date of Service May 13, 2023 Assessment & Plan (1) Respiratory syncytial virus (RSV): Plan: Serology testing positive on admission. However, I believe CHF and bronchitis are causing the majority of her symptoms. Nevertheless she is being treated for what sounds like acute bronchitis in association with acute congestive heart failure. Supportive care. Chest CTA negative for PE (2) Acute respiratory failure with hypoxia and hypercarbia: Plan: Supplemental oxygen has been weaned off. She is now on room air (3) Morbid obesity: Plan: BMI greater than 40. Suggest aggressive weight loss (4) Combined systolic and diastolic congestive heart failure: Plan: Continue parenteral Lasix diuresis. Improved. Oxygen has been weaned off. Monitor intake and output. Serial chest x-rays. Lisinopril and metoprolol have been added and are well-tolerated so far. Metoprolol dosage uptitrated today, May 13, for better blood pressure and heart rate control. Cardiac echo reveals ejection fraction of 35% with regional wall motion abnormalities. She will need ischemic cardiac workup at a later date. (5) Type 2 diabetes mellitus: Plan: ADA diet. Sliding scale coverage as needed. Metformin is on hold and will be restarted at discharge (6) Acute bronchitis: Plan: Suspected. Cefepime started, day 1. Will obtain sputum culture if sputum is produced. Plan Hopeful discharge to home tomorrow, May 14 Admission and Anticipated Discharge Date Admission Date: May 11, 2023 Subjective Alert and oriented. Chest x-ray done today, May 23, looks better to my eye with decreased CHF and persistent left lower lobe effusion. She does not feel well however. Examination is consistent with acute bronchitis. Room air oxygen saturation 92%. Metoprolol has been uptitrated for better blood pressure and heart rate control. Intravenous cefepime has been started. Will obtain sputum culture if sputum is produced. Scheduled DuoNebs also ordered Review of Systems 2 Review of Systems: Constitutional-no fever or chills ENT-no blurred vision, no double vision, no epistaxis, no sore throat Respiratory-occasional nonproductive cough. Dyspnea on exertion Cardiac-no palpitations, no chest pain, no syncope GI-no nausea, vomiting, diarrhea, melena, hematochezia -no urinary retention, no urinary incontinence, no dysuria, no hematuria Musculoskeletal-no joint pain, no muscle tenderness Skin-no bruising, no rashes, no pruritus Neuro-no isolated weakness, no paresthesia, no weakness Psych-no depression, no anxiety Physical Exam 2 Physical Exam: General-alert and oriented x3, no fevers, no chills. Morbidly obese HEENT-head atraumatic and normocephalic, pupils equal and reactive to light, extraocular muscles intact Neck-no lymphadenopathy or thyromegaly, trachea midline Chest-diminished breath sounds bilaterally. No wheezing. Midline rhonchi with forced cough. Cardiac-regular rate and rhythm, normal S1 and S2 Abdomen-normal bowel sounds, nontender, no hepatosplenomegaly Extremities-no cyanosis, clubbing, or edema Neuro-cranial nerves II through XII intact, motor and sensory function within normal limits, strength symmetrical , no focal deficits Psych-normal affect, normal mood Results & Data Results & Data Vital Signs (Past 12 Hours) Vital Signs Temp Pulse Resp BP Pulse Ox O2 Del Method O2 Flow Rate 05/13/23 11:35 89 14 98 Nasal Cannula 1 05/13/23 11:03 36.6 C 79 18 108/67 90 Nasal Cannula 1 05/13/23 07:40 Room Air 05/13/23 07:30 108 H 16 93 Nasal Cannula 1 05/13/23 07:06 36.6 C 97 H 19 144/72 H 92 Room Air 05/13/23 03:00 36.6 C 92 H 18 126/97 92 Nasal Cannula Laboratory Results 05/13/23 05:36 05/13/23 05:36 PG Care Time/CCT Total # of Minutes Spent Total Time Spent with Patient: Total time spent is greater than 50% in coordination of care (as documented) at patient's floor/unit and/or counseling patient: Coding Level of Care Code 70725 SUB INP/OBS CARE 3/50MIN Diagnoses Respiratory syncytial virus (RSV) B33.8 Acute respiratory failure with hypoxia and hypercarbia J96.01; J96.02 Morbid obesity E66.01 Combined systolic and diastolic congestive heart failure I50.40 Type 2 diabetes mellitus E11.9 Acute bronchitis J20.9
[2023-05-13] MEDS: CEFEPIME 2,000 MG in SYRINGE 0 ML IV SCH ×2 (14:04→20:01)
[2023-05-13] MEDS: CHOLESTYRAMINE LIGHT 4 GM PKT PO SCH (22:11)
[2023-05-13] MEDS: ACETAMINOPHEN 325 MG TAB PO PRN (22:11)
[2023-05-14] MEDS: CEFEPIME 2,000 MG in SYRINGE 0 ML IV SCH ×3 (04:38→20:16)
[2023-05-14] MEDS: ENOXAPARIN INJ 40 MG/0.4 ML SYR SQ SCH (04:42)
[2023-05-14 06:09] LABS: Basophils # (auto) 0.03 K/uL (0.00-0.20); Basophils % (auto) 0.4 %; Eosinophils # (auto) 0.09 K/uL (0.00-0.50); Eosinophils % (auto) 1.3 %; Hematocrit (blood only) 36.6 % (37.0-47.0); Hemoglobin 11.9 g/dl (12.0-16.0); Immature Granulocytes # (auto) 0.02 K/uL (0.01-0.20); Immature Granulocytes % (auto) 0.3 %; Lymphocytes # (auto) 1.83 K/uL (1.20-3.40); Lymphocytes % (auto) 25.6 %; Mean Corpuscular Hemoglobin 32.2 pg (25.0-34.0); Mean Corpuscular Hgb Conc 32.5 g/dL (32.0-36.0); Mean Corpuscular Volume 99.2 fL (80.0-100.0); Mean Platelet Volume 9.7 fL (9.4-12.4); Monocytes # (auto) 0.68 K/uL (0.11-0.59); Monocytes % (auto) 9.5 %; Neutrophils # (auto) 4.51 K/uL (1.40-6.50); Neutrophils % (auto) 62.9 %; Platelet Count 219 K/uL (130-400); RDW Coefficient of Variation 13.3 % (11.5-14.5); RDW Standard Deviation 49.2 fL (36.4-46.3); Red Blood Count 3.69 M/uL (4.20-5.40); White Blood Count 7.16 K/ul (4.8-10.8)
[2023-05-14 06:23] LABS: Calcium 8.9 mg/dl (8.6-10.3); Creatinine Clr Calc Pharmacy 98.7 ml/min; Est GFR (African American) 106.3 ml/min; Est GFR (Non-African American) 91.8 ml/min; Potassium 3.7 mmol/L (3.5-5.1)
[2023-05-14] MEDS: ALBUT/IPRATROP 3MG/0.5MG NEB 3 ML VIAL NEB SCH ×3 (07:16→19:10)
[2023-05-14] MEDS: BUDESONIDE 0.25 MG/2 ML VIAL (PULMICORT) NEB SCH (07:16)
[2023-05-14] MEDS: ASPIRIN 81 MG ECTAB PO SCH (08:06)
[2023-05-14] MEDS: EZETIMIBE 10 MG TAB PO SCH (08:06)
[2023-05-14] MEDS: FUROSEMIDE 40 MG/4 ML VIAL IV SCH ×2 (08:06→18:05)
[2023-05-14] MEDS: METOPROLOL TARTRATE 50 MG TAB PO SCH ×2 (08:07→20:14)
[2023-05-14] MEDS: lisinopril 10 MG TAB PO SCH (08:07)
--- NOTE | 2023-05-14 13:11 | Hospitalist Progress Note ---
Date of Service May 14, 2023 Assessment & Plan (1) Respiratory syncytial virus (RSV): Plan: Serology testing positive on admission. However, I believe CHF and bronchitis are causing the majority of her symptoms. Nevertheless she is being treated for what sounds like acute bronchitis in association with acute congestive heart failure. Supportive care. Chest CTA negative for PE (2) Acute respiratory failure with hypoxia and hypercarbia: Plan: Supplemental oxygen has been weaned off. She is now on room air (3) Morbid obesity: Plan: BMI greater than 40. Suggest aggressive weight loss (4) Combined systolic and diastolic congestive heart failure: Plan: Continue parenteral Lasix diuresis. Improved. Oxygen has been weaned off. Monitor intake and output. Serial chest x-rays. Lisinopril and metoprolol have been added and are well-tolerated so far. Metoprolol dosage uptitrated on May 13, for better blood pressure and heart rate control. Cardiac echo reveals ejection fraction of 35% with regional wall motion abnormalities. She will need ischemic cardiac workup at a later date. (5) Type 2 diabetes mellitus: Plan: ADA diet. Sliding scale coverage as needed. Metformin is on hold and will be restarted at discharge (6) Acute bronchitis: Plan: Suspected. Cefepime, day 2. Will obtain sputum culture if sputum is produced. (7) COPD (chronic obstructive pulmonary disease): Plan: Suspected due to long-term smoking history. She has some wheezing associated with the bronchitis and parenteral steroid therapy has been started. Continue nebulizer treatments Plan Hopeful discharge to home tomorrow, May 15 Admission and Anticipated Discharge Date Admission Date: May 11, 2023 Subjective Feeling better but still coughing and now with some wheezing. Solu-Medrol ordered. Continue cefepime and nebulizer treatments. Sputum culture remains pending. Continue parenteral Lasix diuresis for acute combined systolic/diastolic CHF. Known ejection fraction 35%. Outpatient ischemic cardiac evaluation at a later date. Lisinopril and metoprolol are new. Well- tolerated so far. Chest CTA negative for PE. She remains on room air. Review of Systems 2 Review of Systems: Constitutional-no fever or chills ENT-no blurred vision, no double vision, no epistaxis, no sore throat Respiratory-occasional nonproductive cough. Dyspnea on exertion. Wheezing Cardiac-no palpitations, no chest pain, no syncope GI-no nausea, vomiting, diarrhea, melena, hematochezia -no urinary retention, no urinary incontinence, no dysuria, no hematuria Musculoskeletal-no joint pain, no muscle tenderness Skin-no bruising, no rashes, no pruritus Neuro-no isolated weakness, no paresthesia, no weakness Psych-no depression, no anxiety Physical Exam 2 Physical Exam: General-alert and oriented x3, no fevers, no chills. Morbidly obese HEENT-head atraumatic and normocephalic, pupils equal and reactive to light, extraocular muscles intact Neck-no lymphadenopathy or thyromegaly, trachea midline Chest-diminished breath sounds bilaterally. Faint bilateral expiratory wheezes. No inspiratory rales. Midline rhonchi with forced cough. Cardiac-regular rate and rhythm, normal S1 and S2 Abdomen-normal bowel sounds, nontender, no hepatosplenomegaly Extremities-no cyanosis, clubbing, or edema Neuro-cranial nerves II through XII intact, motor and sensory function within normal limits, strength symmetrical , no focal deficits Psych-normal affect, normal mood Results & Data Results & Data Vital Signs (Past 12 Hours) Vital Signs Temp Pulse Pulse Resp BP Pulse Ox O2 Del Method 05/14/23 13:04 84 16 95 Nasal Cannula 05/14/23 10:49 36.7 C 79 18 113/60 94 Nasal Cannula 05/14/23 07:30 Room Air 05/14/23 07:18 100 H 15 95 Nasal Cannula 05/14/23 07:04 36.5 C 90 18 128/65 94 Nasal Cannula 05/14/23 03:00 36.8 C 86 24 146/77 H 90 Nasal Cannula 05/14/23 01:28 83 O2 Flow Rate 05/14/23 13:04 1 05/14/23 10:49 2 05/14/23 07:30 05/14/23 07:18 3 05/14/23 07:04 2 05/14/23 03:00 05/14/23 01:28 Laboratory Results 05/14/23 05:46 05/14/23 05:46 PG Care Time/CCT Total # of Minutes Spent Total Time Spent with Patient: Total time spent is greater than 50% in coordination of care (as documented) at patient's floor/unit and/or counseling patient: Coding Level of Care Code 00328 SUB INP/OBS CARE 3/50MIN Diagnoses Respiratory syncytial virus (RSV) B33.8 Acute respiratory failure with hypoxia and hypercarbia J96.01; J96.02 Morbid obesity E66.01 Combined systolic and diastolic congestive heart failure I50.40 Type 2 diabetes mellitus E11.9 Acute bronchitis J20.9 COPD (chronic obstructive pulmonary disease) J44.9
[2023-05-14] MEDS: methylPREDNISolone 40 MG in SYRINGE 0 ML IV SCH ×2 (13:43→20:16)
[2023-05-14] MEDS: CHOLESTYRAMINE LIGHT 4 GM PKT PO SCH (21:53)
[2023-05-15] MEDS: CEFEPIME 2,000 MG in SYRINGE 0 ML IV SCH ×2 (04:45→12:17)
[2023-05-15] MEDS: methylPREDNISolone 40 MG in SYRINGE 0 ML IV SCH ×2 (05:03→12:17)
[2023-05-15] MEDS: ENOXAPARIN INJ 40 MG/0.4 ML SYR SQ SCH (05:03)
[2023-05-15] MEDS: ALBUT/IPRATROP 3MG/0.5MG NEB 3 ML VIAL NEB SCH ×2 (07:00→12:42)
[2023-05-15] MEDS: BUDESONIDE 0.25 MG/2 ML VIAL (PULMICORT) NEB SCH (07:00)
[2023-05-15] MEDS: METOPROLOL TARTRATE 50 MG TAB PO SCH (08:44)
[2023-05-15] MEDS: FUROSEMIDE 40 MG/4 ML VIAL IV SCH (08:44)
[2023-05-15] MEDS: ASPIRIN 81 MG ECTAB PO SCH (09:50)
[2023-05-15] MEDS: EZETIMIBE 10 MG TAB PO SCH (09:50)
[2023-05-15] MEDS: lisinopril 10 MG TAB PO SCH (09:50)
--- NOTE | 2023-05-15 13:08 | Discharge Summary ---
Date of Service May 15, 2023 Admission HPI Per Admitting Provider 77yo female presenting with shortness of breath. She reports 3 days of symptoms including dry cough, dyspnea at rest and with exertion as well as feeling of chest "fullness". Her had a cold last week and has since recovered. Patient with no known lung disease, however, she did smoke 1ppd for many years. She quit tobacco 20 years ago. She denies fever, chills, palpitations, abdominal pain, nausea, vomiting or diarrhea. No nasal congestion, sore throat or other URI symptoms. No additional complaints at this time. She was hypoxic prior to arrival at 74% on room air. she is currently on NC and saturating well ER Course: Solumedrol 125mg IV ALbuterol 3mL Azithromycin 5oo mg PO Principal Diagnosis Acute bronchitis with bronchospasm, RSV positivity, acute combined systolic/diastolic CHF Discharge Exam General-alert and oriented x3, no fevers, no chills. Morbidly obese HEENT-head atraumatic and normocephalic, pupils equal and reactive to light, extraocular muscles intact Neck-no lymphadenopathy or thyromegaly, trachea midline Chest-diminished breath sounds bilaterally. Faint bilateral expiratory wheezes. No inspiratory rales. Midline rhonchi with forced cough. Cardiac-regular rate and rhythm, normal S1 and S2 Abdomen-normal bowel sounds, nontender, no hepatosplenomegaly Extremities-no cyanosis, clubbing, or edema Neuro-cranial nerves II through XII intact, motor and sensory function within normal limits, strength symmetrical , no focal deficits Psych-normal affect, normal mood Discharge Data Allergies Allergy/AdvReac Type Severity Reaction Status Date / Time Guqytrc-FAK-MhE Reductase AdvReac Unknown MUSCLE PAIN Verified 05/10/23 22:01 Inhibitor [Rjkevmu-Ihy-Iie Reductase Inhibitor] Consultations 05/10/23 22:54 ED Decision to Admit Stat Ordered Studies 05/10/23 21:06 CT angio chest PE protocol Stat Hospital Course (1) Respiratory syncytial virus (RSV): Serology testing positive on admission. However, I believe CHF and bronchitis are causing the majority of her symptoms. Nevertheless she is being treated for what sounds like acute bronchitis in association with acute congestive heart failure. Supportive care. Chest CTA negative for PE (2) Acute respiratory failure with hypoxia and hypercarbia: Supplemental oxygen has been weaned off. She is now on room air (3) Morbid obesity: BMI greater than 40. Suggest aggressive weight loss (4) Combined systolic and diastolic congestive heart failure: Treated with parenteral Lasix diuresis. Improved. Two-step evaluation completed today, May 15. She will need 2 L of oxygen continuously while at home. Hopefully this can be weaned off shortly. Monitor intake and output. Serial chest x-rays. Lisinopril and metoprolol have been added and are well- tolerated so far. Metoprolol dosage uptitrated on May 13, for better blood pressure and heart rate control. Cardiac echo reveals ejection fraction of 35% with regional wall motion abnormalities. She will need ischemic cardiac workup at a later date. (5) Type 2 diabetes mellitus: ADA diet. Sliding scale coverage as needed. Metformin is on hold and will be restarted at discharge (6) Acute bronchitis: Suspected. Treated while hospitalized with cefepime. Sputum culture is nondiagnostic. She will continue with cefdinir at discharge (7) COPD (chronic obstructive pulmonary disease): Suspected due to long-term smoking history. She has some wheezing associated with the bronchitis and parenteral steroid therapy has been started. Continue nebulizer treatments. Prednisone tapering dose at discharge Plan Home todayMay 15. Follow-up with PCP as soon as possible. She will need outpatient cardiac workup for possible underlying ischemia Total Time Total Time Spent Total Time Spent (In Minutes): 45 minutes Discharge Plan Discharge Items Patient Disposition: Home - Home Health Services Reason For Visit: HYPOXIC HYPERCARBIC RESPIRATORY FAILURE Discharge Diagnosis: Acute combined systolic/diastolic congestive heart failure, acute hypoxic respiratory failure, acute bronchitis with bronchospasm, RSV positivity Activity: Resume your previous activity Non-emergency contact: Primary Care Provider Call non-emergency contact if: you have any medication questions and your symptoms worsen Follow-up/Referrals: Tomas Maddox MD [Primary Care Provider] - 05/22/23 2:00 pm (Follow up scheduled: 05/22/23 @ 2 pm) Diet: Carb Consistent or DM2 and Heart Healthy Addtl Attending Provider Instructions: New heart medications include lisinopril, Lasix and metoprolol. Medications for suspected bronchitis and airway spasm include cefdinir and prednisone. Wear oxygen at 2 L/min at all times Pending Studies at Discharge: No Stand-Alone Forms: Realm, Smoking Cessation Medications and DC Order Prescriptions: New lisinopril 10 mg Tablet 10 mg PO QAM Qty: 30 0RF metoprolol tartrate 50 mg Tablet 50 mg PO BID Qty: 60 0RF furosemide [Lasix] 40 mg tablet 40 mg PO DAILY Qty: 30 0RF cefdinir 300 mg capsule 300 mg PO BID 5 Days Qty: 10 0RF prednisone 10 mg tablet See Rx Instructions .ROUTE .COMPLEX Qty: 12 0RF Rx Instructions: 10 mg orally 3 times a day for 2 days, then 10 mg twice a day for 2 days, then 10 mg once a day for 2 days, then stop Continued alendronate 70 mg tablet 70 mg PO .weekly Qty: 12 3RF metformin 500 mg tablet extended release 24 hr 1,000 mg PO QAM Qty: 270 1RF glucosamine-chondroitin [Osteo Bi-Flex] 250-200 mg tablet 2 tab PO DAILY Rx Instructions: give after food/meal Cholestyramine Light 4 gram powder in packet 4 g PO QPM Qty: 60 11RF ezetimibe [Zetia] 10 mg tablet 10 mg PO DAILY Qty: 90 3RF multivitamin with minerals Capsule 1 cap PO QAM cholecalciferol (vitamin D3) [Vitamin D3] 5,000 unit Tablet 5,000 unit PO QAM omega 8-oph-zag-fish oil [Fish Oil] 1,000 mg (120 mg-180 mg) Capsule 1 cap PO QAM ascorbic acid (vitamin C) [Vitamin C] 1,000 mg tablet 1 g PO QAM aspirin 81 mg Capsule 81 mg PO QAM Discharge Orders: Discharge Order- CHF (Routine); Ordered 05/15/23 Ordered By: Shayan Heredia Admission Data Admit Date/Time: 05/11/23 00:01 Attending Provider: Shayan Heredia Admit Provider: Shelby Barclay Primary Care Provider: Tomas Maddox Other Providers: Shelby Barclay Coding Level of Care Code 80623 INP/OBS DISCH >30 MIN Diagnoses Respiratory syncytial virus (RSV) B33.8 Acute respiratory failure with hypoxia and hypercarbia J96.01; J96.02 Morbid obesity E66.01 Combined systolic and diastolic congestive heart failure I50.40 Type 2 diabetes mellitus E11.9 Acute bronchitis J20.9 COPD (chronic obstructive pulmonary disease) J44.9
== END 2023-05-15 15:18 | disposition home or self-care (01) | DRG 202 ==
LOC: ED 20:41 → SUATTDRO 05-11 00:01 → 2E 05-11 00:01